=== PATIENT | male | born 1940 | race Caucasian/White ===

== ENCOUNTER 2016-05-21 20:51 | Emergency (ER) | payer MEDICARE ==
[~2016-05-21] VITALS: Ht 172.7 cm; Wt 102.2 kg
[~2016-05-21 20:51] MED LIST: ACET-2321 PO; ASPI-914 PO; ATOR80TA76 PO; BISA10SU8 RECTALLY; BUDE10.2 INH; CLOP75TA19 PO; DIPH50CA4 PO; DOCU-175 PO; DOXA2TAB2 PO; ESCI10TA47 PO; FERR-67 PO; FINA5TAB42 PO; LISI-621 PO; METO25TA6 PO; MICO15CR4 TOP; NITR0.4T SL; POLY17PO18 PO; PRIM50TA30 PO; PSYL0.525 PO; TAMS0.4C47 PO
--- OUTSIDE RECORDS SUMMARY | 2016-05-21 20:55 | XMS REPORT | Continuity of Care Document ---
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 Edema - *Chronic Constipation, unspecified - Acute Exacerbation ADV EFF MED/BIOL SUB NOS - *Acute Hypokalemia - *Controlled Former smoker - Inactive Peripheral vascular disease - Healing Pulmonary infiltrates - *Resolved Sleep apnea - *Controlled COPD (chronic obstructive pulmonary disease) - *Stable Diastolic dysfunction - Mild Hypertension, unspecified - *Poor control Benign prostatic hyperplasia - *Stable Peripheral vascular disease - Improved Hypertension, Unspecified - *Fair Control Edema - *Worse BENIGN LOCALIZED HYPERPLASIA OF PROSTATE WITH URINARY OBSTRUCTION - *Fair Control 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 Peripheral vascular disease, unspecified - Chronic Constipation, unspecified - Chronic Edema - Chronic Peripheral vascular disease, unspecified - *Chronic Constipation, unspecified - *Chronic Edema - *Chronic Withdrawal symptoms, drug or narcotic - *Acute 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 2012 - *Chronic 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 2012 - Improved Hypertension, Benign - *Chronic Hypertension, Benign - *Controlled Other and unspecified hyperlipidemia - *Chronic Hypertension, Unspecified - *Chronic COPD - *Chronic COPD - *Stable Other specified aftercare following surgery - *Chronic ADV EFF MED/BIOL SUB NOS - *Chronic 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 Peripheral vascular disease, unspecified - *Chronic Edema - *Chronic Other emphysema - *Chronic CKD (chronic kidney disease) stage 3, GFR 30-59 ml - *Worse Sleep disturbance - *Chronic Right hip pain - *Chronic Abdominal aortic aneurysm - Unstable Abnormal CT scan of lung - Uncertain Chronic obstructive airway disease - *Stable Peripheral vascular disease - Persistent Tobacco use disorder - Remission Chronic obstructive pulmonary disease (COPD) - *Stable Peripheral vascular disease - *Acute Sleep apnea - *Controlled Ex-cigarette smoker - *Stable Edema - Improved Stasis dermatitis - *Resolved Constipation, unspecified - *Chronic Other specified aftercare following surgery - *Chronic Edema - *Chronic Peripheral vascular disease, unspecified - *Chronic Insomnia - *Chronic Edema - *Acute Encounter for postoperative wound care - *Acute Peripheral vascular disease, unspecified - *Chronic Peripheral vascular disease, unspecified - Acute Exacerbation Constipation, unspecified - *Acute Embolic disease of toe - *Acute Hip pain, chronic - *Chronic Edema extremities - *Acute Hypertension, Unspecified - *Controlled Elevated blood pressure (not hypertension) May-01-2013 - *Acute Anxiety as acute reaction to exceptional stress - *Acute Tremor - *Acute Wound, open, toe - *Chronic COPD - *Fair Control Hypertension, Unspecified - *Controlled Edema - *Symptomatic Dependent edema - Persistent Stasis dermatitis - Persistent Eczema - *Acute Toe cyanosis - *Chronic Hypertension, Unspecified - *Controlled Peripheral vascular disease, unspecified - *Chronic Edema - *Chronic Hypertension, Benign - *Chronic Pain in joint involving pelvic region and thigh - *Chronic Sleep Apnea - *Chronic COPD - *Chronic Insomnia, Other - *Chronic Aftercare following surgery of the musculoskeletal - *Acute Gangrene - *Acute Hypertension, Unspecified - *Controlled Edema - *Resolved Peripheral vascular disease, unspecified - *Chronic Constipation, unspecified - *Chronic 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 Edema - *Chronic Chronic pain - *Chronic Cardiovasculare disease, unspecified - Chronic Hypertension, Unspecified - Chronic Other and unspecified hyperlipidemia - Chronic COPD - Chronic BPH - Chronic Obesity - Chronic Abnormality of gait - Chronic Sleep Apnea, Obstructive - Chronic Hypotension, Orthostatic - Chronic Right hip pain - Improved Actinic keratosis - Uncertain COPD - *Chronic Sleep Apnea - *Chronic Tobacco Abuse, History of - *Stable Peripheral vascular disease, unspecified - *Acute Obesity - *Chronic Hypertension, Unspecified - *Fair Control Influenza Vaccine - Sleep Apnea, Obstructive - Uncertain HYPERTROPHY (BENIGN) OF PROSTATE WITH URINARY OBSTRUCTION - * Fair Control Lung nodule seen on imaging study - New onset 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 Edema - *Chronic Constipation, unspecified - *Chronic Hypertension, Benign - *Chronic 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 - Chronic Edema - Chronic Constipation, unspecified - Chronic Hypertension, Benign - Chronic THYROTOX NOS NO CRISIS - PURE HYPERCHOLESTEROLEM - BENIGN HYPERTENSION - THROMBOS HEMORRHOIDS NOS - ALLERGIC RHINITIS NOS - 490 - BRONCHITIS NOS - EMPHYSEMA NEC - 496 - CHR AIRWAY OBSTRUCT NEC - CONSTIPATION NOS - BPH NOS W/O UR OBS/LUTS - BACKACHE NOS - PLANTAR FIBROMATOSIS - Family History Family Member Diagnosis Age At Onset Status Unknown Social History Social History Element Description Quantity Unknown Allergies, Adverse Reactions, Alerts Substance Reaction Severity Status BENAZEPRIL HCL muscle aches and fatigue Unknown LOSARTAN POTASSIUM myalgia, muscle fatigue Unknown Medications Medication Instructions Dosage Effective Dates (start - stop) Status triamcinolone acetonide 0.5 % topical ointment apply by topical route 3 times every day a thin layer to the affected area(s) 0 - Active metoprolol tartrate 25 mg tablet take 1 Tablet (25MG) by oral route 2 times every day 25 MG - Active Plavix 75 mg tablet take 1 tablet (75MG) by oral route every day 75 MG Nov - Active Aspirin Low Dose 81 mg tablet,delayed release take 1 tablet (81MG) by oral route every day 81 MG - Active Spiriva with HandiHaler 18 mcg & inhalation capsules inhale 1 capsule (18MCG) by inhalation route every day 18 MCG - Active Fiber-Caps 0.52 gram capsule take 2 Capsule by Oral route 2 times every day 0 - Active primidone 50 mg tablet take 1 Tablet (50MG) by oral route 2 times every day 50 MG - Active Stool Softener 240 mg capsule take 1 capsule (240MG) by oral route every day as needed 240 MG - Active Advair Diskus 250 mcg-50 mcg/dose powder for inhalation Inhale 1 puff by inhalation twice a day. - Active doxazosin 2 mg tablet take 1 tablet (2MG) by oral route every day 2 MG Nov - Active Immunizations Vaccine Date Status Comments Influenza virus (intradermal) completed Flu (split) (3 yrs or older) completed Pneumo (2 yrs or older)(PPV) completed Tdap (Boostrix r) completed pneumo (2 yrs or older) (PPV23) completed - Completed reason: source unspecified Td (adult) completed - Completed reason: source unspecified Results Test Name Date and Time Measure Units Reference Range Abnormal Flag Comments Panel Description: Metabolic Profile Glucose 09:56:00 80 mg/dL 70-99 BUN 09:56:00 13 mg/dL 8-26 Creatinine 09:56:00 1.29 mg/dL 0.72-1.25 H Calcium 09:56:00 9.7 mg/dL 8.9-10.5 Sodium 09:56:00 138 mEq/L 135-144 Potassium 09:56:00 4.2 mEq/L 3.5-5.2 Chloride 09:56:00 104 mEq/L 99-111 CO2 09:56:00 30 mEq/L 23-31 Anion Gap 09:56:00 4 3-20 Testing performed at [facility] Reference Lab [address] [facility] [address] Rubber Tubing Splicer Daniel Daly MD Panel Description: [facility] eGFR 09:56:00 55 mL/min >60 A Multiply eGFR results by 1.21 for race.Testing performed at [facility] Reference Lab [address] [facility] [address] Rubber Tubing Splicer Daniel Daly MD Panel Description: Magnesium Magnesium 09:56:00 2.2 mg/dL 1.6-2.6 Testing performed at [facility] Reference Lab [address] [facility] [address] Rubber Tubing Splicer Daniel Daly MD Vital Signs Date / Time: Height Weight Pulse Rate Blood Pressure Temperature /10:04:00 68.00 in 227.00 lbs 72 /min 152/78 mm[Hg] Procedures Procedure Date Unknown Encounters Encounter Location Date Patient Visit [facility] Patient Visit [facility] Patient Visit [facility] Patient Visit [facility] Pulne Patient Visit [facility] Pulmo Patient Visit [facility] Patient Visit [facility] Patient [facility] Patient Visit [facility] Patient [facility] Patient [facility] Patient [facility] Patient [facility] Patient Visit [facility] Patient Visit [facility] Patient Visit [facility] Patient Visit [facility] Patient Visit [facility] Patient [facility] Patient [facility] Patient [facility] Patient Visit [facility] Patient Visit [facility] Patient Visit [facility] Patient Visit [facility] Patient Visit [facility] Patient Visit [facility] Patient Visit [facility] Patient Visit [facility] Patient Visit [facility] Patient [facility] Patient [facility] Patient Visit [facility] Patient Visit [facility] Patient Visit [facility] Patient Visit [facility] Urology Patient Visit [facility] Patient Visit Conversion Patient Visit [facility] Patient Visit [facility] Advance Directives Directive Effective Date Unknown
--- OUTSIDE RECORDS SUMMARY | 2016-05-21 20:55 | XMS REPORT | Referral Summary ---
Author Organization Unknown Address Unknown Phone Unavailable Care Team Providers Care Residential Aide Name Role Phone Daryl Lazcano Primary Care Physician [phone] Encounter VC Date(s): 04/12/14 - 04/12/14 [facility], [place], Family Medicine [address] [place] [address] [place] [id number] Discharge Diagnosis: Benign essential hypertension Discharge Diagnosis: Peripheral vascular disease Discharge Disposition: Home or Self Care Attending Physician: Daryl Lazcano DO Admitting Physician: Daryl Lazcano DO Vital Signs Most recent to 1 oldest [Reference Range]: Peripheral Pulse 70 bpm Rate [60-100 bpm] (04/12/14 11:01 AM) Blood Pressure 132/72 mmHg [90-140/60-90 mmHg] (04/12/14 11:01 AM) Problem List Condition Effective Dates Status Health Status Informant Abnormal gait Active (finding)(Confirmed) Acute kidney injury, 01/29/12 Active hypokalemia(Confirme d) Allergic Active Rhinitis/Hay Fever(Confirmed) Arteriosclerotic Active cardiovascular disease(Confirmed) Arthralgia of the Active pelvic region and thigh (finding)(Confirmed) Arthritis(Confirmed) Resolved Asthma(Confirmed) Resolved intermittant mild Active back pains(Confirmed) Benign essential Active hypertension (disorder)(Confirmed ) Benign Prostatic Active Hypertrophy(Confirme d) Bronchitis(Confirmed Active ) COPD(Confirmed)1 Active claudication(Confirm 2011 Active ed) Constipation Active (disorder)(Confirmed ) 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(Confirmed)2 Disorder of Active cardiovascular system (disorder)(Confirmed ) Edema Active (finding)(Confirmed) Hemorrhoids(Confirme Active d) Hip pain, Active chronic(Confirmed) High Active cholesterol(Confirme d) Hyperlipidemia, Active NOS(Confirmed) Hypothyroidism(Confi Active rmed) plantar fascitis, Active mild chronic(Confirmed) left sided 01/2008 Active TMJ(Confirmed) Embolic disease of Active toe(Confirmed) Basal cell skin ca L 03/18/11 Active shoulder(Confirmed)3 Obesity Active (disorder)(Confirmed ) Obstructive sleep Active apnea syndrome (disorder)(Confirmed ) Orthostatic Active hypotension (disorder)(Confirmed ) Overweight(Confirmed Active )4 Peripheral vascular Active disease (disorder)(Confirmed ) Encounter for Active postoperative wound care(Confirmed) Prostatism(Confirmed Active )5 Emphysema Active NEC(Confirmed) Sleep apnea Active (disorder)(Confirmed ) Gait Active instability(Confirme d) 1moderate COPD, mild emphysema (PFT 03/2007). See Conversion Document 2[place] IN 6 MO. 07/2011 3full excision 4See Conversion Document 5mild Allergies, Adverse Reactions, Alerts No Known Medication Allergies Medications Aspirin Low Dose 81 mg oral delayed release tablet 1 tabs, Oral, Daily, 0 Refill(s) Start Date: 08/08/13 Status: Ordered doxazosin 2 mg oral tablet 1 tabs, Oral, Daily, # 90 tabs, 4 Refill(s), Pharmacy: [facility], 1 tabs Oral Daily Start Date: 11/02/13 Status: Ordered Fiber Choice See Instructions, 2 caps BID, 0 Refill(s) Special Instructions: 2 caps BID Start Date: 10/31/13 Status: Ordered lisinopril 20 mg oral tablet 1 tabs, Oral, Daily, # 90 tabs, 3 Refill(s), Pharmacy: [facility] Start Date: 04/12/14 Status: Ordered metoprolol tartrate 25 mg oral tablet 1 tabs, Oral, BID, # 60 tabs, 0 Refill(s), Pharmacy: [facility], 1 tabs Oral BID Start Date: 11/17/13 Status: Ordered Plavix 75 mg oral tablet 1 tabs, Oral, Daily, # 30 tabs, 0 Refill(s) Start Date: 08/08/13 Status: Ordered primidone 50 mg oral tablet 1 tabs, Oral, BID, # 120 tabs, 0 Refill(s) Start Date: 08/08/13 Status: Ordered Surfak Stool Softener 240 mg oral capsule 1 caps, Oral, Daily, 0 Refill(s) Start Date: 10/31/13 Status: Ordered Symbicort 160 mcg-4.5 mcg/inh inhalation aerosol 2 puffs, Inhalation, Daily, 0 Refill(s) Start Date: 10/31/13 Status: Ordered Results No data available for this section Immunizations Vaccine Date Refusal Reason influenza virus vaccine, live 12/08/12 influenza virus vaccine, live 10/31/12 pneumococcal 13-valent conjugate vaccine1 12/07/13 pneumococcal 23-polyvalent vaccine 12/08/12 tetanus-diphth toxoids (Td) adult/adol 05/02/03 zoster vaccine live2 12/14/13 1Result Comment: [12/08/2013] see scanned document 2Result Comment: [12/14/2013] see scanned document Procedures Procedure Date Related Diagnosis Body Site Angiogram and stent placement/Dr Barbosa-1 Colonoscopies embolectomy-rt lower extremity-Dr Barbosa2 Hospitalization PEREODONTAL GUMS3 STENT TO THE LEFT COMMAN ILIAC ARTERY4 1claudication 2011 2PVD- p angiogram got embolis- 11-30-2011. 3See Conversion Document 4Peripheral vascular disease 11/16/2011. Social History Social History Type Response Smoking Status Former smoker; Type: Cigarettes Assessment and Plan Extracted from: Title: Office Visit Note Author: Daryl Lazcano DO Date: 04/12/14 Assessment/Plan 1.Benign essential hypertension 1. Blood pressures well controlled at this time. 2. C ontinue with lisinopril and metoprolol as previous. 3. Follow-up in 3 months for blood pressure management. Ordered: Office Visit Level 3 Est 18738 2.Peripheral vascular disease Recommended following Dr. Barbosa's recommendation regarding the Plavix. Ordered: Office Visit Level 3 Est 72736 Orders: lisinopril, 1 tabs, Oral, Daily, # 90 tabs, 3 Refill(s), [id number] Future Scheduled TestsReferral* Return to Clinic 12/07/13 12:36 PM Referrals to Other Providers Referred by: Bruno Mello MD
--- OUTSIDE RECORDS SUMMARY | 2016-05-21 20:55 | XMS REPORT | Referral Summary ---
Author Author [facility] Organization [facility] Address Unknown Phone Unavailable Care Team Providers Care Ceramic Sprayer Name Role Phone Daryl Lazcano Primary Care Physician [phone] Encounter VC Date(s): 08/13/14 - 08/13/14 [facility] [place] [address] [place] [id number] Discharge Diagnosis: Libido, decreased Discharge Diagnosis: Benign essential hypertension Discharge Diagnosis: Lower back pain Discharge Disposition: 01-Home or Self Care Attending Physician: Daryl Lazcano DO Admitting Physician: Daryl Lazcano DO Vital Signs Most recent to 1 oldest [Reference Range]: Temperature Tympanic 36.3 degC [36.6-38.1 degC] *LOW* (08/13/14 1:44 PM) Peripheral Pulse 60 bpm Rate [60-100 bpm] (08/13/14 1:44 PM) Blood Pressure 132/68 mmHg [90-140/60-90 mmHg] (08/13/14 1:44 PM) Problem List Condition Effective Dates Status Health Status Informant Abnormal gait Active (finding)(Confirmed) Acute kidney injury, 01/29/12 Active hypokalemia(Confirme d) Allergic Active Rhinitis/Hay Fever(Confirmed) Arteriosclerotic Active cardiovascular disease(Confirmed) Arthralgia of the Active pelvic region and thigh (finding)(Confirmed) Arthritis(Confirmed) Resolved Asthma(Confirmed) Resolved intermittant mild Active back pains(Confirmed) Benign essential Active hypertension (disorder)(Confirmed ) Benign Prostatic Active Hypertrophy(Confirme d) Bronchitis(Confirmed Active ) COPD(Confirmed)1 Active claudication(Confirm 2012 Active ed) Constipation Active (disorder)(Confirmed ) MILDLY [...] 03/18/11 Active shoulder(Confirmed)3 Obesity Active (disorder)(Confirmed ) Obesity(Confirmed) Active patient Obstructive sleep Active apnea syndrome (disorder)(Confirmed ) [...] Status: Ordered doxazosin 2 mg oral tablet See Instructions, TAKE ONE TABLET BY MOUTH ONCE DAILY, # 90 tabs, 3 Refill(s), eRx: [id number], TAKE ONE TABLET BY MOUTH ONCE DAILY Start Date: 01/25/15 Status: Ordered Fiber Choice See Instructions, 2 caps BID, 0 Refill(s) Start Date: 10/31/13 Status: Ordered lisinopril 40 mg oral tablet 40 mg 1 tabs, Oral, Daily, # 30 tabs, 6 Refill(s), Pharmacy: [facility] Start Date: 08/30/14 Status: Ordered Metoprolol Tartrate 25 mg oral tablet See Instructions, TAKE ONE TABLET BY MOUTH TWICE DAILY, # 60 tabs, 3 Refill(s), eRx: [facility], TAKE ONE TABLET BY MOUTH TWICE DAILY Start Date: 10/16/14 Status: Ordered Metoprolol Tartrate 25 mg oral tablet See Instructions, TAKE ONE TABLET BY MOUTH TWICE DAILY, # 60 tabs, 1 Refill(s), eRx: [facility], TAKE ONE TABLET BY MOUTH TWICE DAILY Start Date: 02/11/15 Status: Ordered Plavix 75 mg oral tablet 1 tabs, Oral, Daily, # 30 tabs, 0 Refill(s) Start Date: 08/08/13 Status: Ordered primidone 50 mg oral tablet 1 tabs, Oral, BID, # 120 tabs, 0 Refill(s) Start Date: 08/08/13 Status: Ordered Surfak Stool Softener 240 mg oral capsule 240 mg 1 caps, Oral, Daily, as needed for constipation, 0 Refill(s) Start Date: 10/31/13 Status: Ordered Symbicort 160 mcg-4.5 mcg/inh inhalation aerosol 2 puffs, Inhalation, Daily, # 1 Each, 6 Refill(s), Pharmacy: [id number] Start Date: 09/26/14 Status: Ordered Results No data available for [...] Visit Note Author: Daryl Lazcano DO Date: 08/13/14 Assessment/Plan Benign essential hypertension 1. I agree with discontinuing the chlorthalidone given that his blood pressures well controlled at this time. 2. Continue modifying diet and avoiding salt as much as possible. 3. Increase exercise as tolerated. 4. Avoid NSAIDs. Ordered: Office Visit Level 3 Est 32534 Libido, decreased 1. Agree with discontinuation of chlorthalidone. 2. We will address this at next office visit, if it continues to be concerned then we will determine if he needs further testing. Ordered: Office Visit Level 3 Est 86412 Lower back pain 1.Discontinue the use of NSAIDs. 2. He may use Tylenol instead. 3. Follow-up if worsening presentation. Future Scheduled TestsReferral* Return to Clinic 07/16/14 2:08 PM Referrals to Other Providers Referred by: Bruno Mello MD
--- OUTSIDE RECORDS SUMMARY | 2016-05-21 20:56 | XMS REPORT | Referral Summary ---
Author Author [facility] Organization [facility] Address Unknown Phone Unavailable Care Team Providers Care Merchandising Representative Name Role Phone Reedloyda Daryl Primary Care Physician [phone] Encounter VC Date(s): 05/30/15 - 06/12/15 [facility] [address] [place] [address] [phone] Discharge Diagnosis: Weakness on left side of face Discharge Diagnosis: Hemianopia, homonymous, left Discharge Diagnosis: CAD (coronary artery disease) of artery bypass graft Discharge Diagnosis: Encephalopathy Discharge Diagnosis: Acute arterial ischemic stroke, multifocal, mult vascular territories Discharge Disposition: 62-Inpatient Rehab Facility Attending Physician: Kenny Fitzpatrick MD Admitting Physician: Kenny Fitzpatrick MD Vital Signs Most recent to 1 oldest [Reference Range]: Temperature Oral 36.3 degC [35.8-37.3 degC] (06/12/15 9:00 AM) Temperature Temporal 36.0 degC Artery [36.3-37.8 *LOW* degC] (06/07/15 8:00 AM) Apical Heart Rate 118 bpm [60-100 bpm] *HI* (06/04/15 10:20 AM) Peripheral Pulse 97 bpm Rate [60-100 bpm] (06/12/15 9:41 AM) Peripheral Pulse 92 bpm Rate with Activity (06/10/15 10:31 AM) Heart Rate Monitored 87 bpm [60-100 bpm] (06/11/15 7:54 AM) Respiratory Rate 20 br/min [14-20 br/min] (06/12/15 9:00 AM) Blood Pressure 119/71 mmHg [90-140/60-90 mmHg] (06/12/15 9:41 AM) Systolic Blood 131 mmHg Pressure with (06/10/15 10:31 AM) Activity Diastolic Blood 85 mmHg Pressure with (06/10/15 10:31 AM) Activity Mean Arterial 105 mmHg Pressure, Cuff (06/07/15 9:00 AM) Blood Pressure 123/54 mmHg Invasive (06/04/15 2:00 PM) [90-140/60-90 mmHg] Mean Arterial 70 mmHg Pressure, Invasive (06/04/15 2:00 PM) Pulse Rate [60-100 88 bpm bpm] (06/12/15 7:46 AM) SpO2 93 % (06/12/15 9:00 AM) Remote Telemetry Ongoing (06/12/15 9:00 AM) Problem List Condition Effective Dates Status Health Status Informant Abnormal gait Active (finding)(Confirmed) Acute Active pain(Confirmed) Acute kidney injury, 01/29/12 Active hypokalemia(Confirme d) Allergic Active Rhinitis/Hay Fever(Confirmed) Anxiety(Confirmed)1 Active Arteriosclerotic Active cardiovascular disease(Confirmed) Arthralgia of the Active pelvic region and thigh (finding)(Confirmed) Arthritis(Confirmed) Resolved Asthma(Confirmed) Resolved At risk for activity Active intolerance(Confirme d)2 At risk of pressure Active sore(Confirmed) intermittant mild Active back pains(Confirmed) Benign essential Active hypertension (disorder)(Confirmed ) Benign Prostatic Active Hypertrophy(Confirme d) Bronchitis(Confirmed Active ) Cardiac Active disorder(Confirmed)3 COPD(Confirmed)4 Active claudication(Confirm 2011 Active ed) 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(Confirmed)5 Disorder of Active cardiovascular system (disorder)(Confirmed ) Edema Active (finding)(Confirmed) Hemorrhoids(Confirme Active d) Hip pain, Active chronic(Confirmed) High Active cholesterol(Confirme d) Hyperlipidemia, Active NOS(Confirmed) Hypothyroidism(Confi Active rmed) plantar fascitis, Active mild chronic(Confirmed) left sided 01/2008 Active TMJ(Confirmed) Embolic disease of Active toe(Confirmed) Basal cell skin ca L 03/18/11 Active shoulder(Confirmed)6 Obesity Active (disorder)(Confirmed ) Obesity(Confirmed) Active patient Obstructive sleep Active apnea syndrome (disorder)(Confirmed ) Orthostatic Active hypotension (disorder)(Confirmed ) Overweight(Confirmed Active )7 Peripheral vascular Active disease (disorder)(Confirmed ) Encounter for Active postoperative wound care(Confirmed) Prostatism(Confirmed Active )8 Emphysema Active NEC(Confirmed) Sleep apnea Active (disorder)(Confirmed ) Constipation Active (disorder)(Confirmed ) Gait Active instability(Confirme d) 1Problem added automatically by system based on initiation of Anxiety Plan of Care 2Problem added automatically by system based on initiation of At Risk for Activity Intolerance Plan of Care 3Problem added automatically by system based on initiation of Cardiac Output/ Ineffective Cardiac Perfusion Plan of Care 4moderate COPD, mild emphysema (PFT 03/2007). See Conversion Document 5[place] 6 [place]. 07/2011 6full excision 7See Conversion Document 8mild Allergies, Adverse Reactions, Alerts No Known Medication Allergies Medications Aspirin Low Dose 81 mg oral delayed release tablet 81 mg 1 tabs, Oral, Daily, 0 Refill(s) Start Date: 08/08/13 Status: Ordered atorvastatin 80 mg oral tablet 80 mg 1 tabs, Oral, Daily, # 30 tabs, 6 Refill(s), other reason (Rx) Start Date: 06/11/15 Status: Ordered diphenhydrAMINE 50 mg, Oral, Bedtime (once a day), TAKE FOR SLEEP, 0 Refill(s) Start Date: 05/30/15 Status: Ordered doxazosin 2 mg, Oral, Daily, 0 Refill(s) Start Date: 05/30/15 Status: Ordered Dulcolax Stool Softener 200 mg, Oral, Daily, 0 Refill(s) Start Date: 05/30/15 Status: Ordered ferrous sulfate 325 mg (65 mg elemental iron) oral delayed release tablet 650 mg 2 tabs, Oral, Daily, 0 Refill(s) Start Date: 06/11/15 Status: Ordered finasteride 5 mg oral tablet 5 mg 1 tabs, Oral, Daily, # 30 tabs, 0 Refill(s) Start Date: 04/24/15 Status: Ordered lisinopril 20 mg oral tablet 20 mg 1 tabs, Oral, Daily, # 30 tabs, 0 Refill(s), other reason (Rx) Start Date: 06/11/15 Status: Ordered metoprolol tartrate 25 mg oral tablet 25 mg 1 tabs, Oral, BID, # 60 tabs, 6 Refill(s), other reason (Rx) Start Date: 06/11/15 Status: Ordered Nitrostat 0.4 mg sublingual tablet 0.4 mg 1 tabs, SubLingual, q5min, Angina/Chest Pain, # 25 Each, 6 Refill(s), other reason (Rx) Start Date: 06/11/15 Status: Ordered Perham 5 mg-325 mg oral tablet See Instructions, Pain Moderate (4-6), 1 to 2 tabs Oral q4hr, # 50 tabs, 0 Refill(s), other reason (Rx) Start Date: 06/11/15 Stop Date: 06/22/15 Status: Ordered OTC Psyllium Fiber OTC Psyllium Fiber, 2 caps oral daily, 0 Refill(s) Start Date: 05/30/15 Status: Ordered Plavix 75 mg oral tablet 75 mg 1 tabs, Oral, Daily, # 30 tabs, 0 Refill(s) Start Date: 08/08/13 Status: Ordered primidone 50 mg oral tablet 50 mg 1 tabs, Oral, BID, # 120 tabs, 0 Refill(s) Start Date: 08/08/13 Status: Ordered Symbicort 160 mcg-4.5 mcg/inh inhalation aerosol 2 puffs, Inhalation, Daily, # 1 Each, 6 Refill(s), Pharmacy: [id number] Start Date: 09/26/14 Status: Ordered Results Blood Gases Most recent to 1 oldest [Reference Range]: pH [7.35-7.45] 7.36 (06/04/15 5:30 AM) PCO2 Arterial POC 41 mmHg [35-45 mmHg] (06/03/15 12:28 PM) pCO2 Art [35-45 37 mmHg mmHg] (06/04/15 5:30 AM) CO2 Totl Art [23-27 21 mEq/L mEq/L] *LOW* (06/03/15 12:28 PM) Bicarbonate [22-26 20 mEq/L mEq/L] *LOW* (06/04/15 5:30 AM) Bicarbonate Arterial 20 mEq/L POC [22-26 mEq/L] *LOW* (06/03/15 12:28 PM) Base Excess Arterial -6 POC [0-2] *LOW* (06/03/15 12:28 PM) Base Excess Art -5 [0-2] *LOW* (06/04/15 5:30 AM) O2 Sat Art 95.7 % [90.0-97.0 %] (06/04/15 5:30 AM) pO2 Art [80-100 85 mmHg mmHg] (06/04/15 5:30 AM) O2 Saturation 100.0 % Arterial POC *HI* [90.0-97.0 %] (06/03/15 12:28 PM) pH Arterial POC 7.30 [7.35-7.45] *LOW* (06/03/15 12:28 PM) PO2 Arterial POC 296 mmHg [80-100 mmHg] *HI* (06/03/15 12:28 PM) LPM Art 6.0 L/min (06/04/15 5:30 AM) O2 Panel Nasal Cannula (06/04/15 5:30 AM) Vent Mode AC (06/03/15 1:26 PM) Set Vt 500 mL (06/03/15 1:26 PM) Set Rate 12 br/min (06/03/15: PM) FiO2 Art [0-100] 40 (06/03/15 10:30 PM) PEEP 5.0 (06/03/15 10:30 PM) Inspiratory Time Art 0.90 seconds (06/03/15 1:26 PM) Tubing Compensation 100 % (06/03/15 10:30 PM) Total Rate 8 br/min (06/03/15 6:49 PM) Spon Vt 800 mL (06/03/15 6:49 PM) Spec Site A-Line (06/04/15 5:30 AM) Hematology Most recent to 1 oldest [Reference Range]: WBC [4.8-10.8 7.0 10*3/uL 10*3/uL] (06/08/15 5:28 AM) RBC [4.60-6.20] 3.26 *LOW* (06/08/15 5:28 AM) Hgb [14.0-18.0 9.3 gm/dL gm/dL] *LOW* (06/08/15 5:28 AM) Hct [42.0-52.0 %] 29.5 % *LOW* (06/08/15 5:28 AM) MCV [82.0-99.0 fL] 90.5 fL (06/08/15 5:28 AM) MCH [27.0-32.0 pg] 28.5 pg (06/08/15 5:28 AM) MCHC [32.0-36.0 31.5 gm/dL gm/dL] *LOW* (06/08/15 5:28 AM) RDW [11.5-14.5 %] 14.3 % (06/08/15 5:28 AM) Platelet [150-400 187 10*3/uL 10*3/uL] (06/08/15 5:28 AM) MPV [9.4-12.3 fL] 9.9 fL (06/08/15 5:28 AM) Immature 0.3 % Granulocytes (06/04/15 3:57 AM) [0.0-1.0 %] Neutrophils [51-75 86 % %] *HI* (06/04/15 3:57 AM) Lymphocytes [20-46 6 % %] *LOW* (06/04/15 3:57 AM) Monocytes [4-11 %] 8 % (06/04/15 3:57 AM) Eosinophils [0-4 %] 0 % (06/04/15 3:57 AM) Basophils [0-2 %] 0 % (06/04/15 3:57 AM) Neutro Absolute 10.09 10*3 [1.90-7.00 10*3] *HI* (06/04/15 3:57 AM) Lymph Absolute 0.66 10*3 [0.80-3.30 10*3] *LOW* (06/04/15 3:57 AM) Archer Absolute 0.98 10*3 [0.30-1.00 10*3] (06/04/15 3:57 AM) Eos Absolute 0.00 10*3 [0.00-0.50 10*3] (06/04/15 3:57 AM) Baso Absolute 0.01 10*3 [0.00-0.20 10*3] (06/04/15 3:57 AM) Nucleated RBC 0.0 /100 WBC Automated [0 /100 (06/04/15 3:57 AM) WBC] Coagulation Most recent to 1 oldest [Reference Range]: INR [0.9-1.2] 2.0 *HI* (06/03/15 11:26 AM) PTT [25.0-35.0 57.0 seconds seconds] *HI* (06/03/15 11:26 AM) Fibrinogen Lvl 204 mg/dL [187-520 mg/dL] (06/03/15 11:26 AM) P2Y12 Reaction Units 168.0 1 (06/03/15 3:31 AM) Thrombelastograph See Scan (06/03/15 11:26 AM) 1Result Comment: Pre-Drug PRU reference is 194-418. PRU levels lower than 194 are associated with expected antiplatelet effect. The performance characteristics of the P2Y12 inhibition test has been established for Clopidogrel, Prasugrel, and Ticagrelor. Expected values may be used for these drugs. Chemistry Most recent to 1 oldest [Reference Range]: Sodium Lvl [136-144 136 mEq/L mEq/L] (06/09/15 6:55 AM) Potassium Lvl 4.0 mEq/L [3.6-5.1 mEq/L] (06/09/15 6:55 AM) Chloride [99-109 104 mEq/L mEq/L] (06/09/15 6:55 AM) CO2 [22-32 mEq/L] 29 mEq/L (06/09/15 6:55 AM) AGAP [3-20] 3 (06/09/15 6:55 AM) BUN [4-20 mg/dL] 17 mg/dL (06/09/15 6:55 AM) Glucose Lvl [70-100 105 mg/dL mg/dL] *HI* (06/09/15 6:55 AM) Creatinine Lvl 1.04 mg/dL [0.64-1.27 mg/dL] (06/09/15 6:55 AM) eGFR [>60] >60 1 (06/09/15 6:55 AM) Calcium Lvl 8.4 mg/dL [8.6-10.0 mg/dL] *LOW* (06/09/15 6:55 AM) Albumin Lvl [3.5-4.8 3.3 gm/dL gm/dL] *LOW* (05/31/15 4:35 AM) Total Protein 7.3 gm/dL [6.1-7.9 gm/dL] (05/31/15 4:35 AM) Globulin [1.9-4.3 4.0 gm/dL gm/dL] (05/31/15 4:35 AM) ALT [17-63 U/L] 23 U/L (05/31/15 4:35 AM) AST [15-41 U/L] 24 U/L (05/31/15 4:35 AM) Alk Phos [26-104 84 U/L U/L] (05/31/15 4:35 AM) Bili Total [0.2-1.2 0.8 mg/dL 2 mg/dL] (05/31/15 4:35 AM) Magnesium Lvl 1.9 mg/dL [1.8-2.5 mg/dL] (06/05/15 3:42 AM) Calcium Ionized 1.23 mmol/L [1.19-1.41 mmol/L] (06/05/15 3:42 AM) Prealbumin [18-38 16 mg/dL mg/dL] *LOW* (06/03/15 3:31 AM) Sodium Arterial NPT 141 mEq/L [136-144 mEq/L] (06/03/15 12:28 PM) Potassium Arterial 4.2 mEq/L 3 NPT [3.6-5.1 mEq/L] (06/03/15 12:28 PM) Calcium Ionized 1.17 mmol/L Arterial NPT *LOW* [1.19-1.41 mmol/L] (06/03/15 12:28 PM) HCT Arterial NPT 34.0 % (06/03/15 12:28 PM) HGB Arterial NPT 11.6 gm/dL (06/03/15 12:28 PM) Arterial Glucose NPT 109 mg/dL [70-100 mg/dL] *HI* (06/03/15 12:28 PM) Activated Clotting 110 seconds Time NPT [100-146 (06/03/15 11:29 AM) seconds] Blood Glucose, 123 mg/dL Capillary [70-100 *HI* mg/dL] (06/04/15 6:44 AM) Chol [0-200 mg/dL] 215 mg/dL *HI* (05/31/15 4:35 AM) Trig [0-150 mg/dL] 97 mg/dL (05/31/15 4:35 AM) HDL [>40 mg/dL] 43 mg/dL (05/31/15 4:35 AM) LDL [0-100 mg/dL] 153 mg/dL *HI* (05/31/15 4:35 AM) VLDL Cholesterol 19 mg/dL [0-30 mg/dL] (05/31/15 4:35 AM) Cardiac Risk 5.0 [0.0-5.7] (05/31/15 4:35 AM) TSH with Reflex Free 2.85 T4 [0.35-5.50] (06/06/15 4:02 AM) Hgb A1c [4.1-5.6 %] 5.1 % (06/03/15 3:31 AM) eAvg Glucose 99.7 mg/dL (06/03/15 3:31 AM) 1Result Comment: Multiply eGFR results by 1.21 for race. 2Result Comment: Naproxen, specifically the metabolite O-desmethylnaproxen, may cause spurious elevation in Total Bilirubin levels. 3Result Comment: This test was performed on a whole blood specimen. The presence or absence of hemolysis cannot be assessed. Hemolysis can falsely elevate potassium levels. Normals are for venous specimens only. Urinalysis Most recent to 1 oldest [Reference Range]: UA Color Yellow (06/03/15 3:25 AM) UA Appear Clear (06/03/15 3:25 AM) UA pH [5.0-8.0] 6.0 (06/03/15 3:25 AM) UA Leuk Est Negative [Negative] (06/03/15 3:25 AM) UA Nitrite Negative [Negative] (06/03/15 3:25 AM) UA Protein Negative [Negative] (06/03/15 3:25 AM) UA Glucose Negative [Negative] (06/03/15 3:25 AM) UA Ketones Negative [Negative] (06/03/15 3:25 AM) UA Urobilinogen Negative [<1.0] (06/03/15 3:25 AM) UA Bili [Negative] Negative (06/03/15 3:25 AM) UA Blood [Negative] Negative (06/03/15 3:25 AM) UA Spec Grav 1.020 [1.003-1.030] (06/03/15 3:25 AM) Type Clean Catch (06/03/15 3:25 AM) Blood Bank Results Most recent to 1 oldest [Reference Range]: ABO/Rh O POS (06/02/15 11:07 AM) Antibody Screen Tube NEG (06/02/15 11:07 AM) Microbiology Reports TEST: MRSA Screen Culture STATUS: Auth (Verified) BODY SITE: SOURCE: Nares COLLECTED DATE/TIME: 06/02/15 4:01 PM MRSA Screen Culture No Methicillin Resistant Staphylococcus aureus isolated. Immunizations Vaccine Date Refusal Reason influenza virus vaccine, live 12/08/12 influenza virus vaccine, live 10/31/12 pneumococcal 13-valent conjugate vaccine1 12/07/13 pneumococcal 23-polyvalent vaccine 12/08/12 tetanus-diphth toxoids (Td) adult/adol 05/02/03 zoster vaccine live2 12/14/13 1Result Comment: [12/08/2013] see scanned document 2Result Comment: [12/14/2013] see scanned document Procedures Procedure Date Related Diagnosis Body Site Bypass Graft Coronary Artery1 06/03/15 Angiogram and stent placement/Dr Barbosa-2 Colonoscopies3 embolectomy-rt lower extremity-Dr Barbosa4 Hospitalization PEREODONTAL GUMS5 STENT TO THE LEFT COMMAN ILIAC ARTERY6 1auto-populated from documented surgical case 2claudication 2011 4PVD- p angiogram got embolis- 11-30-2011. 5See Conversion Document 6Peripheral vascular disease 11/16/2011. Social History Social History Type Response Smoking Status Former smoker; Type: Cigarettes Assessment and Plan Extracted from: Title: Progress/SOAP Note Author: Brigitte Samuels APRN Date: 06/01/15 Assessment/Plan 1. CAD Consult Dr. Karin Schmidt for CABG, heart cath disc on chart, notified 1100 Pt needs fullanti-coagulation, continue Aspirin 81mg, ICUbed for monitoring due to diffuse CAD 2. s/pNSTEMI On EMILY, beta rosy, aspirin and statin therapy 3. HTN controlled Continue home meds lisinopril 40mg daily, metoprolol tartrate 25mg bid started this am 4. PAD antiplatelet therapy, restart plavix after surgery Statin therapy 5. hypercholesterolemia Started on 40mg of atorvastatin 6. COPD/sleep apnea continue home med symbicort CPAP nocturnal RT consult 7. BPH continue home meds finasteride, doxazosin 8. left carotid bruit see results above Future Scheduled TestsReferral* Return to Clinic 07/16/14 2:08 PM Referrals to Other Providers Referred by: Bruno Mello MD
--- OUTSIDE RECORDS SUMMARY | 2016-05-21 20:56 | XMS REPORT | Continuity of Care Document ---
Author Author [facility] Organization [facility] Address Unknown Phone Unavailable Support Name Relationship Address Phone JACKIE GOLDMAN MD Caregiver [address] [place] [address] Unavailable JACKIE GOLDMAN MD Caregiver [address] [place] [address] Unavailable SHRUTHI MACKAY DO Caregiver [address] [place] [address] Unavailable ALCON TRAN Next Of Kin [address] [place] [address] Insurance Providers Guarantor MarcDago Address [address] [place] [id number] Email [email or web address] Payer [facility] Policy Number [id number] Subscriber's Name Dago Tran Relationship 18 Self Group Number [id number] Effective Date 07 Advance Directives Directive Response Recorded Date/Time Ordered Resuscitation Status Full Code 06/12/15 2:49pm Resuscitation Documents on File Yes 06/12/15 3:32pm DPOA for Healthcare Only Yes 06/13/15 4:51pm Chief Complaint and Reason for Visit Chief Complaint CVA Reason for Visit AAA (abdominal aortic aneurysm) H/O aorto-femoral bypass Adjustment disorder Anemia Arterial ischemic stroke, multifocal, multiple vascular territories, acute Atherosclerotic peripheral vascular disease of extremity BPH (benign prostatic hyperplasia) COPD (chronic obstructive pulmonary disease) Carotid stenosis Cellulitis and abscess of leg Chest pain Constipation Coronary artery disease Dysphagia due to recent stroke Elevated troponin I level Hemianopsia Hypertension Incontinence of bowel Incontinence of urine Left hemiparesis Obstructive sleep apnea Problems Active Problems Medical Problem Onset Date Status AAA (abdominal aortic aneurysm) Unknown Acute Adjustment disorder Unknown Acute Adjustment disorder with depressed mood Unknown Acute Anemia Unknown Acute Arterial ischemic stroke, multifocal, multiple vascular territories, acute Unknown Acute Atherosclerotic peripheral vascular disease of extremity Unknown Chronic BPH (benign prostatic hyperplasia) Unknown Chronic COPD (chronic obstructive pulmonary disease) Unknown Chronic Carotid stenosis Unknown Acute Cellulitis and abscess of leg Unknown Resolved Chest pain Unknown Resolved Constipation Unknown Resolved Coronary artery disease Unknown Chronic Dysphagia due to recent stroke Unknown Resolved Elevated troponin I level Unknown Acute Hemianopsia Unknown Resolved Hypertension Unknown Chronic Incontinence of bowel Unknown Resolved Incontinence of urine Unknown Resolved Left hemiparesis Unknown Acute Obstructive sleep apnea Unknown Chronic Surgical Problem Onset Date Status H/O aorto-femoral bypass Unknown Chronic Medications Current Home Medications Medication Dose Units Route Directions Days Qty Instructions Start Date Acetaminophen (Tylenol) 325 Mg Tablet 325-650 Mg Oral Every 5 Hours as needed for Discomfort 30 Tablet 06/28/15 Aspirin (Low Dose Aspirin Ec) 81 Mg Tablet.dr 81 Mg Oral Daily Atorvastatin Calcium 80 Mg Tablet 1 Tab Oral Bedtime 06/12/15 Bisacodyl 10 Mg Supp.rect 10 Mg Rectally Daily as needed for Constipation 15 06/28/15 Budesonide/Formoterol Fumarate (Symbicort 160-4.5 Mcg Inhaler) 10.2 Gm Hfa.aer.ad 1 Puff Inhalation Daily 05/29/15 Clopidogrel Bisulfate (Plavix) 75 Mg Tablet 75 Mg Oral Daily 07/20 Diphenhydramine Hcl 50 Mg Capsule 50 Mg Oral Bedtime as needed for Insomnia 30 Days 30 Capsule 06/28/15 Docusate Sodium 100 Mg Capsule 2 Cap Oral Daily 30 Capsule 06/12/15 Doxazosin Mesylate 2 Mg Tablet 2 Mg Oral Daily 05/29/15 Escitalopram Oxalate 10 Mg Tablet 10 Mg Oral Daily 30 Days 30 Tablet 06/28/15 Ferrous Sulfate (Iron Supplement) 325 Mg Tablet 2 Tab Oral Daily 06/12/15 Finasteride 5 Mg Tablet 5 Mg Oral Daily 05/29/15 Lisinopril 20 Mg Tablet 20 Mg Oral Daily 30 Days 30 Tablet 06/28/15 Metoprolol Tartrate 25 Mg Tablet 25 Mg Oral Twice A Day 05/29/15 Miconazole Nitrate (Antifungal Cream) 10 Applic/15 G Cr 1 Applic Topically Daily 1 Gram 06/28/15 Nitroglycerin (Nitrostat) 0.4 Mg Tablet 0.4 Mg Sublingual Every 5 Minutes X 3 as needed for Chest Pain 06/12/15 Polyethylene Glycol 3350 (Healthylax) 17 Gm Powd.pack 17 Gm Oral Daily as needed for Constipation 15 06/28/15 Primidone 50 Mg Tablet 50 Mg Oral Twice A Day 05/29/15 Psyllium Husk (Psyllium Fiber) 0.52 Gm Capsule 2 Cap Oral Daily 06/12/15 Tamsulosin Hcl 0.4 Mg Cap.er.24h 0.4 Mg Oral Bedtime 30 Days 30 Capsule 06/28/15 Past Home Medications Medication Directions Ordered Status Advair , 07/04/09 Discontinued Atorvastatin Calcium (Lipitor) 40 Mg Tablet, 40 Mg Oral Bedtime 05/30/15 Discontinued Calcium Citrate/Vitamin D3 (Calcium Citrate + D Caplet) 1 Tab Tablet, 1 Tab Oral Twice A Day 01/14/12 Discontinued Calcium Polycarbophil (Fiber Tabs) 625 Mg Tablet, 1250 Mg Oral Twice A Day Discontinued Carvedilol (Coreg) 6.25 Mg Tablet, 6.25 Mg Oral Twice A Day 01/14/12 Discontinued Diphenhydramine Hcl (Sleep Aid) 50 Mg Capsule, 50 Mg Oral Bedtime 05/29/15 Discontinued Hydrocodone/Acetaminophen ([place] 5-325 Tablet) 1 Each Tablet, 1-2 Tab Oral Every 4 Hours as needed for Pain 06/12/15 Discontinued Lactulose 10 G/15 Ml Solution, 10 G Oral Twice A Day 01/14/12 Discontinued Lisinopril 10 Mg Tablet, 10 Mg Oral Daily 06/12/15 Discontinued Lisinopril (Prinivil) 10 Mg Tablet, 10 Mg Oral Daily 05/30/15 Discontinued Metolazone 5 Mg Tablet, 5 Mg Oral Daily 01/14/12 Discontinued Morphine Sulfate (Ms Contin) 30 Mg Tablet.sa, 30 Mg Oral Twice A Day as needed 01/14/12 Discontinued Pantoprazole Sodium (Protonix) 40 Mg Tablet.dr, 40 Mg Oral Daily 01/29/12 Discontinued Salmeterol Xinafoate/Fluticasone (Advair 250-50 Diskus) 1 Each Disk.w.dev, 1 Puff Inhalation Twice A Day as needed for Prn Orders 01/14/12 Discontinued Tiotropium Bowlus (Spiriva) 18 Mcg Cap.w.dev, 18 Mcg Inhalation Daily Discontinued Social History Social History Problem Response Recorded Date/Time Onset Date Status Hx Alcohol Use No 05/29/2015 5:59pm Not Applicable Not Applicable Has the pt used tobacco in the last 12 months No 06/12/2015 3:41pm Not Applicable Not Applicable Tobacco Usage smoke 06/13/2015 5:32pm Not Applicable Not Applicable Query Response Start Date Stop Date Smoking Status Former smoker Hospital Discharge Instructions Instructions: Care Instructions: Reason for Hospitalization: CVA I was in the hospital because (patient own words): I had open heart surgery, and i want to rehab to [facility]. Discharge Diet: lactose intolerant, chopped meats Discharge Activity: Walker with assistance PT/OT/ST to evaluate and treat at SNU. Follow Up Appointments: Dr. Tianna Cottrell on 07/01/15 at 3:25 pm for surgery follow-up. [facility] [address] [place] [address] [address] [place] . Dr. Dario Barron on 07/04/15 at 9:30 am for Urology follow-up. [address] [place] . Dr. Annmarie Mackay on 07/11/15 at 10:30 am for Hosp follow-up. [address] [place] . Dr. Lisa Mitchell on 07/30/15 at 9:20 am for follow-up. Check-in at 9:10 am. Bring Photo ID, Insurance Card, and ALL medications you are taking in the original bottle's. [facility] [address] [place] [address] Dr. [place]. . Pending Lab / Results: No Pending Lab Wound/Incision Care: F/U with Dr. Cottrell for sternal wound. Notify Physician If: Fever, chest pain, SOA, increased confusion or other concerns. Condition at time of discharge: Fair Plan of Care Discharge Date 06/28/15 12:55pm Disposition 04 TO [facility] Instructions/Education Provided Cerebellar Stroke Prescriptions See Medication Section Care Plan and Goals See Discharge Instructions Section Functional Status Query Response Date Recorded Mobility Status Ambulatory w/assist June 27, 2015 3:22pm Assistive Devices Front Wheeled Walker June 27, 2015 3:22pm Activity Limitations Weakness June 27, 2015 3:22pm Feeding Ability Independent June 27, 2015 3:22pm Toileting Ability Assist June 27, 2015 3:22pm Grooming Ability Assist June 27, 2015 3:22pm Dressing Ability Assist June 27, 2015 3:22pm Driving Ability Dependent June 27, 2015 3:22pm Housework Ability Assist June 18, 2015 2:21pm Meal Preparation Ability Dependent June 27, 2015 3:22pm Stair Climbing Ability Assist June 27, 2015 3:22pm Ability to complete ADL's impeded by Impaired Mobility Change in Cognition June 27, 2015 3:22pm Cognitive/Perceptual Impairments None June 27, 2015 3:22pm Visual Assistive Devices Glasses With patient June 18, 2015 2:21pm Preferred Method of Learning Demonstration Listening June 27, 2015 3:22pm Allergies, Adverse Reactions, Alerts No known allergies. Immunizations Query Response on File Recorded Date/Time Hx Influenza Vaccination Y 06/12/15 3:41pm Hx Pneumococcal Vaccination Y ? will ask 06/12/15 3:41pm Hx Influenza Vaccination Y 06/12/15 3:41pm DTaP Vaccine History UNKNOWN 05/29/15 5:59pm Influenza Vaccine Hx Nov 2014 06/12/15 4:05pm Vital Signs Acute Vital Signs Vital Response Date/Time Temperature (Fahrenheit) 97.6 deg F (96.8 - 99.1) 06/28/2015 6:33am Temperature (Calculated Celsius) 36.12857 degrees C (36.0 - 37.3) 06/28/2015 6:33am Temperature Source Oral 05/30/2015 4:15pm Pulse Rate (adult) 67 bpm (60 - 100) 06/28/2015 6:33am Respiratory Rate 16 breaths/min (10 - 20) 06/28/2015 6:33am O2 Sat by Pulse Oximetry 93 % (90 - 100) 06/28/2015 6:33am Oxygen Delivery Method Room Air 05/30/2015 6:30pm Oxygen Delivery Method Room Air 06/28/2015 8:00am Oxygen Flow Rate 1.00 L/min 05/30/2015 5:00pm Blood Pressure 142/86 mm Hg 06/28/2015 6:33am Blood Pressure Source Automatic Cuff 06/28/2015 6:33am Height (Feet) 5 feet 06/27/2015 12:53pm Height (Inches) 8.00 inches 06/27/2015 12:53pm Weight (Kilograms) 92.700 kg 06/27/2015 12:48pm Body Mass Index (BMI) 32.4 06/13/2015 2:58am Results Laboratory Results Test Name Result Units Flags Reference Collection Date/Time Result Date/ Time Comments Total Bilirubin 0.50 MG/DL 0.20-1.30 05/29/2015 5:56pm 05/29/2015 6: 10pm Alkaline Phosphatase 109 U/L 38-126 05/29/2015 5:56pm 05/29/2015 6: 10pm Total Protein 7.7 G/DL 6.3-8.2 05/29/2015 5:56pm 05/29/2015 6:10pm Albumin 4.1 G/DL 3.5-5.0 05/29/2015 5:56pm 05/29/2015 6:10pm Globulin 3.6 G/DL 2.4-3.6 05/29/2015 5:56pm 05/29/2015 6:10pm Albumin/Globulin Ratio 1.1 RATIO 1.1-2.2 05/29/2015 5:56pm 05/29/2015 6 :10pm Aspartate Amino Transf (AST/SGOT) 32 U/L 17-59 05/29/2015 5:56pm 2015 6:10pm Alanine Aminotransferase (ALT/SGPT) 30 U/L 21-72 05/29/2015 5:56pm 6:10pm Troponin I 0.040 ng/ml 0-0.12 05/30/2015 6:33am 05/30/2015 7:31am Troponin values with a difference of 55% increase from orginal troponin value represent a true biological DELTA value. (%increase Calc=Orginal Troponin value, divided by subsequent Troponin value, multiplied by 100) Magnesium Level 2.2 MG/DL 1.6-2.3 05/29/2015 5:52pm 05/29/2015 7:39pm Thyroid Stimulating Hormone (TSH) 1.52 MIU/L 0.47-4.68 05/29/2015 5: 52pm 05/29/2015 8:11pm White Blood Count 5.8 T/MM3 4.5-11.0 06/24/2015 4:37am 06/24/2015 4: 52am Red Blood Count 3.91 M/MM3 L 4.50-5.90 06/24/2015 4:37am 06/24/2015 4: 52am Hemoglobin 11.2 GM/DL L 13.5-17.5 06/24/2015 4:37am 06/24/2015 4:52am Hematocrit 35.3 % L 41-53 06/24/2015 4:37am 06/24/2015 4:52am Mean Corpuscular Volume 90.3 UM3 80-100 06/24/2015 4:37am 06/24/2015 4: 52am Mean Corpuscular Hemoglobin 28.6 UUG 26-34 06/24/2015 4:37am 2015 4:52am Mean Corpuscular Hemoglobin Concent 31.7 GM/DL 31-37 06/24/2015 4:37am 06/24/2015 4:52am RDW Standard Deviation 45.2 FL 36.9-50.2 06/24/2015 4:37am 06/24/2015 4 :52am Platelet Count 342 T/MM3 130-400 06/24/2015 4:37am 06/24/2015 4:52am Mean Platelet Volume 9.5 UM3 9.4-12.4 06/24/2015 4:37am 06/24/2015 4: 52am Neutrophils (%) (Auto) 54.3 % 33-66 06/24/2015 4:37am 06/24/2015 4: 52am Lymphocytes (%) (Auto) 19.7 % L 23-45 06/24/2015 4:37am 06/24/2015 4: 52am Monocytes (%) (Auto) 8.7 % 0-9.0 06/24/2015 4:37am 06/24/2015 4:52am Eosinophils (%) (Auto) 16.4 % H 0-4 06/24/2015 4:37am 06/24/2015 4:52am Basophils (%) (Auto) 0.7 % 0-2 06/24/2015 4:37am 06/24/2015 4:52am Immature Granulocyte % (Auto) 0.2 % 0.0-0.5 06/24/2015 4:37am 2015 4:52am Absolute Neutrophils (auto) 3.2 T/MM3 1.8-7.7 06/24/2015 4:37am 2015 4:52am Absolute Lymphocytes (auto) 1.2 T/MM3 1-4.8 06/24/2015 4:37am 2015 4:52am Absolute Monocytes (auto) 0.5 T/MM3 0-0.8 06/24/2015 4:37am 06/24/2015 4:52am Absolute Eosinophils (auto) 1.0 T/MM3 H 0-0.5 06/24/2015 4:37am 2015 4:52am Absolute Basophils (auto) 0.0 T/MM3 0-0.2 06/24/2015 4:37am 06/24/2015 4:52am Absolute Immature Granulocyte (auto 0.01 T/MM3 0.00-0.03 06/24/2015 4: 37am 06/24/2015 4:52am Icterus Index < 2 0-7 06/24/2015 4:37am 06/24/2015 5:07am Chemistry Specimen Hemolysis < 15 0-25 06/24/2015 4:37am 06/24/2015 5 :07am 0-25: Specimen Exhibited No Hemolysis. Turbidity < 20 0-20 06/24/2015 4:37am 06/24/2015 5:07am Sodium Level 138 MEQ/L 134-144 06/24/2015 4:37am 06/24/2015 5:07am Potassium Level 4.7 MEQ/L 3.6-5 06/24/2015 4:37am 06/24/2015 5:07am Chloride Level 102 MEQ/L 98-107 06/24/2015 4:37am 06/24/2015 5:07am Carbon Dioxide Level 27 MEQ/L 22-30 06/24/2015 4:37am 06/24/2015 5: 07am Anion Gap 9 MEQ/L 5-15 06/24/2015 4:37am 06/24/2015 5:07am Blood Urea Nitrogen 15.0 MG/DL 9-20 06/24/2015 4:37am 06/24/2015 5: 07am Creatinine 1.3 MG/DL 0.8-1.5 06/24/2015 4:37am 06/24/2015 5:07am BUN/Creatinine Ratio 12 RATIO 6-06/24/2015 4:37am 06/24/2015 5:07am Glomerular Filtration Rate Calc 54 06/24/2015 4:37am 06/24/2015 5: 07am Glucose Level 88 MG/DL 75-110 06/24/2015 4:37am 06/24/2015 5:07am Calculated Osmolality 266 MOSM/KG 261-280 06/24/2015 4:37am 06/24/2015 5:07am Calcium Level 9.0 MG/DL 8.4-10.2 06/24/2015 4:37am 06/24/2015 5:07am Iron Level 41 UG/DL L 49-181 06/13/2015 9:41am 06/14/2015 1:47am Total Iron Binding Capacity 251 UG/DL L 261-497 06/13/2015 9:41am 2015 1:56am Percent Iron Saturation 16 % 13-59 06/13/2015 9:41am 06/14/2015 1:56am Microbiology Results Procedure Source Organism/Result Collection Date/Time Result Date/Time Result Status WOUND CULTURE DEEP TISS-AER/AN Leg, Left Lower COAG NEGATIVE STAPHYLOCOCCUS 06/16/2015 7:19pm 06/19/2015 7:26am Final ENTEROCOC FAECALIS - (GROUP D) 06/16/2015 7:19pm 06/19/2015 7:26am Final Name: DAGO TRAN Unit #: [id number] : 1940 Sex: M DISCHARGE SUMMARY Admit Date: 06/12/15 Report #: [id number] [facility] General Date Date DATE: 06/28/15 TIME: 11:13 Attending Physician Jackie Goldman MD Admitting Physician Jackie Goldman MD Consulting Physician Dr. Olga MD Admitting Diagnosis Multi-focal ischemic CVA s/p CABG Left sided hemiparesis Hemianopsia HTN Left leg cellulitis CAD PVD BPH, urine incontinence Dysphagia Obstructive sleep apnea COPD Iron-deficiency anemia Discharge Diagnosis Multi-focal ischemic CVA s/p CABG Left sided hemiparesis Hemianopsia HTN Left leg cellulitis CAD PVD BPH, urine incontinence Dysphagia Obstructive sleep apnea COPD Iron-deficiency anemia Adjustment disorder Laboratory Last hemoglobin 11.2 Iron levels 41 Microbiology Left leg incision grew enterococcus fac. History of Present Illness The patient is a 74-year-old male who was transferred here from [place] because of a postoperative stroke. The patient had an episode of chest pain and had a myocardial infarction. He had bypass surgery at [facility] and then postoperatively developed a stroke. Surgeon here for inpatient rehabilitation. He has a history of hypertension COPD. He denies being diabetic he denies being treated for cholesterol problems. Hospital Course 06/17/15. Evaluated left lower extremity open area that contains to have a small amount of serosanguineous drainage. A wound culture was obtained yesterday that showing rare gram- positive cocci with epithelial cells. No acute erythema or change in wound. He denies discomfort. Also evaluated left upper leg incision and barbara. Nursing staff does report that today is day 14 of barbara can be removed. Wound appears to be healing well. Have asked staff to remove barbara. Continue with Augmentin antimicrobial coverage. Patient's white count is normal at 8.0. He is afebrile and vital signs remained stable. No obvious signs of infection are present. Continue to encourage patient to PT and OT for continued strengthening. Continue rehabilitation as per Dr. Goldman 06/19/15 He has been received Augmentin for 7 days. Microbiology of LLE wound culture shows Enterococci Faecalis, which shows susceptibility to ampicillin, doxycycline, linezolid and vancomycin. Will discuss further with Dr Espinoza regarding the need for further treatment given clinical improvement of wound. Continue with Trospium BID for urinary incontinence. Continue with scheduled Colace BID, Miralax daily and add scheduled MOM today and tomorrow. Will also have staff give Dulcolax sup this evening. Encourage continued work with PT,OT and ST for further strengthening 06/20/15 Continue with Amoxicillin for antimicrobial coverage of Entercocci bacteria from would culture. 06/24 would complete a 14 day course. Continue to work with speech therapy for dysphasia and dietary recommendations. Continue with PT and OT for continued strengthening. Bowels have moved aggressively following milk of magnesia and Dulcolax suppository last evening. Blood pressures have been stable this morning was 133/68. 06/20 Doing well with minimal residual left hemiparesis most notable in the left foot. Will recheck CBC on Wednesday to evaluate anemia and white count before considering discontinuation of antibiotics. Patient reports minimal drainage at the site of vein graft were surgical wound infection subsequently developed. No current ischemic symptoms. Blood pressure modestly elevated today however review of blood pressures over preceding days does not suggest need for modification and medications currently. Continue therapies. 06/22/15 Flomax 0.4 milligrams has been added at bedtime to help with urinary incontinence. Continue with amoxicillin for antimicrobial coverage of left lower extremity wound/drainage Continue with current blood pressure regimen to as blood pressures have been stable. Continue to encourage work with PT and OT for continued strengthening and function. 06/23/15 Continue with amoxicillin to be completed on Saturday 06/24 No reported urinary incontinence. Continue with Flomax as scheduled. Continue with current blood pressure regimen to as blood pressures have been stable. Continue to encourage work with PT and OT for continued strengthening and function. Patient states he is eager to be discharged home and is wanting to know plans for this week. 06/23 Amoxicillin course will be completed tomorrow. Labs stable; VSS. Discussed with Dr. Goldman - possible discharge to [facility] this week. A/P discussed with Dr. Espinoza. She recommends f/u with Dr. Cottrell for leg wound after IRU discharge. 06/25 Surgical wounds continue to heal. Amoxicillin course completed. Will need outpt f/u with Dr. Cottrell. Urinary incontinence much improved. Continue with therapy. Poss discharge to SNF later this week. 06-26: On date of discharge, patient was feeling great. His urine incontinence and lower leg incision cellulitis had resolved. Significant progress was made in rehab. We kept him on same medications for discharge to SNU except changed his fiber to his home medication (pills here were very large and needed crushed.) During his stay, mood significantly improved. felt hopeful for stay in SNU and then discharge to home after that. Continue to walk with walker and he will need ST/PT/OT at SNU. Continues to have some mild left neglect. Is on chopped meats diet because he thinks that is easier at this point, but he met all dysphagia goals during stay. He will f/u with Ronit Barron Amirani and Dr. Mackay, his PCP. Problems: (1) Arterial ischemic stroke, multifocal, multiple vascular territories, acute Status: Acute Assessment & Plan: Admit to IRU for intensive rehab. 06-16: Continue rehab. Patient doing well, but biggest concern at this point is memory. Continue ST/PT/OT. 5-11: Continues to improve. Continue inpatient rehab services. Will discuss long -term discharge plans at team meeting on Wednesday. has concerns she will be out of town next Wednesday and Wednesday at a graduation in [place]. We will keep her updated. If he does require SNU, they will likely go to [facility] if that's an option. (2) Coronary artery disease Status: Chronic (3) Cellulitis and abscess of leg Status: Resolved Assessment & Plan: Has mild erythema and drainage of left leg incision. Will start augmentin and monitor carefully. No systemic symptoms. Will change dressings daily. 5-5: Still with mild erythema, but no pain today so that is improved. Continue augmentin for total of 7 days but will continue to watch. 5-6: No worsening pus or erythema. Continue augmentin. 5-9: Greatly improved erythema over lower leg incisions. Less drainage. Finish 7 days of augmentin. Will have barbara removed today from left thigh incision. 5-11: Is clinically improving, but culture grew enteroccocus and augmentin not specifically listed in sensitivities. It was sensitive to ampicillin and doxycycline. [employer] will discuss with pharmacy and Dr. Espinoza to see if we should switch to doxy at this point. (4) Hypertension Status: Chronic Assessment & Plan: Kept patient on metoprolol. Will consult hospitalist to manage. Will consult Amirani if needed. 5-5: Hospitalist following. (5) Left hemiparesis Status: Acute Assessment & Plan: Secondary to acute ischemic CVA. Rehab consulted. 5-5: Continue intensive rehab plan with ST/OT/PT. Is on swallow precautions. 5-6: Continue rehab. Participating well. 5-11: Continue PT/OT/ST. Is improving and participating well. (6) Adjustment disorder Status: Acute Assessment & Plan: Will consult Dr. Medina. Depression after AMI and CVA is very common, so she hopefully can recommend the best treatment for him. 5-5: Continues to have symptoms. Dr. Medina has not seen him yet, but we will remind her today. 5-6: Thank you to Dr. Medina for consult on patient. She started lexapro 10 mg po daily. Mood is actually improved today. 06-16-16: Continue lexapro. Mood stabilizing. -: Mood is improved. Continue lexapro. (7) Incontinence of urine Status: Resolved Assessment & Plan: Will monitor. 16: He does have urge, but just can't hold his urine until he gets to the bathroom. This is new for him since the CVA and may just take time to re-learn, but I will ask Dr. Barron to come by and see patient and see if he has any specific ideas to help Philippe with this issue. -: I did speak with Dr. Barron a couple of days ago and he recommended trying Sanctura. So far, this has not helped his incontinence. Discussed with hospitalist team and they will consider further treatment. This incontinence is a big concern for him as he considers transitioning to home eventually. 5-16: Improved on flomax. (8) Dysphagia due to recent stroke Status: Resolved Assessment & Plan: Consulted speech. Patient was on normal diet in acute hospital, but will adjust as needed. 5-5: On swallow precautions. Getting ST 60 minutes/day, 5 days/week. 9: On 02/11 chopped meats diet now. Continue to monitor. Drinking regular liquids. -: Continue ST. Continues to improve. (9) Obstructive sleep apnea Status: Chronic Assessment & Plan: Patient does not use bipap at home, so we will not do that here, but will monitor symptoms. (10) COPD (chronic obstructive pulmonary disease) Status: Chronic Assessment & Plan: Will keep on home Symbicort (can substitute Advair if needed.) Will consult RT for incentive spirometry and inhaler management. 5-6: Incentive spirometry ordered. Continue inhaler. (11) BPH (benign prostatic hyperplasia) Status: Chronic (12) Atherosclerotic peripheral vascular disease of extremity Status: Chronic Assessment & Plan: On plavix. (13) Constipation Status: Resolved Assessment & Plan: 5-5: Will restart colace and miralax prn. 5-11: Hospitalist adding medication to regimen for treatment. (14) Anemia Status: Acute Assessment & Plan: 5-6: Hospitalist ordered iron studies and iron levels are low. Hospitalist will continue to manage. 5-9: Hemoglobin dropping almost 2 points. Hospitalist will continue to follow. Low iron levels were noted last week, so I would expect they will replace iron and continue to monitor this. (15) Incontinence of bowel Status: Resolved Assessment & Plan: Will monitor. (16) Hemianopsia Status: Resolved Assessment & Plan: 06-18: Reports any vision loss is currently resolved. Code Status Full Code Home Meds Active Scripts Miconazole Nitrate (Antifungal Cream) 10 Applic/15 G Cr, 1 APPLIC TOP DAILY, #1 G 0 Refills Prov:JACKIE GOLDMAN MD 06/28/15 Polyethylene Glycol 3350 (Healthylax) 17 Gm Powd.pack, 17 GM PO DAILY Y for constipation, #15 0 Refills Prov:JACKIE GOLDMAN MD 06/28/15 Bisacodyl (Bisacodyl) 10 Mg Supp.rect, 10 MG RECTALLY DAILY Y for CONSTIPATION, #15 0 Refills Prov:JACKIE GOLDMAN MD 06/28/15 Escitalopram Oxalate (Escitalopram Oxalate) 10 Mg Tablet, 10 MG PO DAILY for 30 Days, #30 TAB 0 Refills Prov:JACKIE GOLDMAN MD 06/28/15 Acetaminophen (Tylenol) 325 Mg Tablet, 325-650 MG PO Q5H Y for DISCOMFORT, #30 TAB 0 Refills Prov:JACKIE GOLDMAN MD 06/28/15 Lisinopril (Lisinopril) 20 Mg Tablet, 20 MG PO DAILY for 30 Days, #30 TAB 0 Refills Prov:JACKIE GOLDMAN MD 06/28/15 Tamsulosin HCl (Tamsulosin HCl) 0.4 Mg Cap.er.24h, 0.4 MG PO HS for 30 Days, # 30 CAP 0 Refills Prov:JACKIE GOLDMAN MD 06/28/15 Diphenhydramine HCl (Diphenhydramine HCl) 50 Mg Capsule, 50 MG PO HS Y for insomnia for 30 Days, #30 CAP 0 Refills Prov:JACKIE GOLDMAN MD 06/28/15 Reported Medications Psyllium Husk (Psyllium Fiber) 0.52 Gm Capsule, 2 CAP PO DAILY 06/12/15 Docusate Sodium (Docusate Sodium) 100 Mg Capsule, 2 CAP PO DAILY, #30 CAP 06/12/15 Nitroglycerin (Nitrostat) 0.4 Mg Tablet, 0.4 MG SL Q5MIN Y for CHEST PAIN, TAB 06/12/15 Ferrous Sulfate (Iron Supplement) 325 Mg Tablet, 2 TAB PO DAILY, TAB 06/12/15 Atorvastatin Calcium (Atorvastatin Calcium) 80 Mg Tablet, 1 TAB PO HS, TAB 06/12/15 Budesonide/Formoterol Fumarate (Symbicort 160-4.5 Mcg Inhaler) 10.2 Gm Hfa.aer.ad, 1 PUFF INH DAILY 05/29/15 Doxazosin Mesylate (Doxazosin Mesylate) 2 Mg Tablet, 2 MG PO DAILY 05/29/15 Finasteride (Finasteride) 5 Mg Tablet, 5 MG PO DAILY 05/29/15 Primidone (Primidone) 50 Mg Tablet, 50 MG PO BID 05/29/15 Metoprolol Tartrate (Metoprolol Tartrate) 25 Mg Tablet, 25 MG PO BID 05/29/15 Clopidogrel Bisulfate (Plavix) 75 Mg Tablet, 75 MG PO DAILY 01/14/12 Aspirin (Low Dose Aspirin Ec) 81 Mg Tablet.dr, 81 MG PO DAILY 01/14/12 Discontinued Reported Medications Lisinopril (Lisinopril) 10 Mg Tablet, 10 MG PO DAILY, TAB 06/12/15 Hydrocodone/Acetaminophen ([place] 5-325 Tablet) 1 Each Tablet, 1-2 TAB PO Q4H Y for PAIN, TAB 06/12/15 Calcium Polycarbophil (Fiber Tabs) 625 Mg Tablet, 1250 MG PO BID 05/29/15 Fluticasone/Salmeterol (Advair 250-50 Diskus) 1 Each Disk.w.dev, 1 PUFF INH BID Y for PRN ORDERS 01/14/12 Discharge Disposition to U Copies To 1: SHRUTHI MACKAY DO Copies To 2: FLORY MITCHELL MD Documentation Requirements Documenting Diagnosis Anemia Anemia Anemia Etiology: Iron Deficiency Anemia Acuity: Unable to Determine JACKIE GOLDMAN MD June 28, 2015 11:17 Procedures Procedure Status Date Provider(s) ROUTINE VENIPUNCTURE Completed 05/29/15 ROUTINE VENIPUNCTURE Completed 05/29/15 CHEST X-RAY 1 VIEW FRONTAL Completed 05/29/15 COMPREHEN METABOLIC PANEL Completed 05/29/15 ASSAY OF MAGNESIUM Completed 05/29/15 ASSAY THYROID STIM HORMONE Completed 05/29/15 ASSAY OF TROPONIN QUANT Completed 05/29/15 ASSAY OF TROPONIN QUANT Completed 05/29/15 ASSAY OF TROPONIN QUANT Completed 05/29/15 COMPLETE CBC W/AUTO DIFF WBC Completed 05/29/15 ELECTROCARDIOGRAM TRACING Completed 05/29/15 ELECTROCARDIOGRAM TRACING Completed 05/29/15 ELECTROCARDIOGRAM TRACING Completed 05/29/15 ELECTROCARDIOGRAM TRACING Completed 05/29/15 TTE W/DOPPLER COMPLETE Completed 05/29/15 L HRT ARTERY/VENTRICLE ANGIO Completed 05/29/15 FLORY MITCHELL MD AIRWAY INHALATION TREATMENT Completed 05/29/15 HYDRATE IV INFUSION ADD-ON Completed 05/29/15 THER/PROPH/DIAG INJ IV PUSH Completed 05/29/15 TX/PRO/DX INJ NEW DRUG ADDON Completed 05/29/15 EMERGENCY DEPT VISIT Completed 05/29/15 [id number] ITEM OR SERVICE Completed 05/29/15 [id number] ITEM OR SERVICE Completed 05/29/15 405040TKO-[id number] ITEM OR SERVICE Completed 05/29/15 455606TLC-[id number] ITEM OR SERVICE Completed 05/29/15 273215FDM-BSIMBUR ITEM OR SERVICE Completed 05/29/15 812410MGE-ZKYLMMA ITEM OR SERVICE Completed 05/29/15 562084MJV-BSFJELG ITEM OR SERVICE Completed 05/29/15 [id number]-YRFJHGF ITEM OR SERVICE Completed 05/29/15 368534QCY-QLQYMME ITEM OR SERVICE Completed 05/29/15 607089NDX-YZZHOGV ITEM OR SERVICE Completed 05/29/15 049918GWI-OQACYTA ITEM OR SERVICE Completed 05/29/15 006431HYE-VWIKWGQ ITEM OR SERVICE Completed 05/29/15 172454BYY-VHSEGVQ ITEM OR SERVICE Completed 05/29/15 516592PMA-SSNEYMY ITEM OR SERVICE Completed 05/29/15 030724ZDV-ASXLAYP ITEM OR SERVICE Completed 05/29/15 010154MKXGB THAN PEEL-AWAY Completed 05/29/15 863916"HOSPITAL OBSERVATION SERVICE, PER HOUR" Completed 05/29/15 509591"HOSPITAL OBSERVATION SERVICE, PER HOUR" Completed 05/29/15 585528"HOSPITAL OBSERVATION SERVICE, PER HOUR" Completed 05/29/15 971560"INJECTION, HYDRALAZINE HCL, UP TO 20 MG" Completed 05/29/15 783085"INJECTION, HEPARIN SODIUM, PER 1000 UNITS" Completed 05/29/15 433992"INJECTION, HEPARIN SODIUM, PER 1000 UNITS" Completed 05/29/15 162737"INJECTION, MIDAZOLAM HYDROCHLORIDE, PER 1 MG" Completed 05/29/15"INJECTION, MIDAZOLAM HYDROCHLORIDE, PER 1 MG" Completed 05/29/15"INJECTION, FENTANYL CITRATE, 0.1 MG" Completed 05/29/15432089TMGQGYVMBXES DRUGS Completed 05/29/15"INFUSION, NORMAL SALINE SOLUTION , 1000 CC" Completed 05/29/15"LOW OSMOLAR CONTRAST MATERIAL, 300-399 MG/ML IODINE C Completed "LOW OSMOLAR CONTRAST MATERIAL, 300-399 MG/ML IODINE C Completed "LOW OSMOLAR CONTRAST MATERIAL, 300-399 MG/ML IODINE C Completed Encounters Encounter Location Arrival/Admit Date Discharge/Depart Date Attending Provider Discharged Inpatient [facility] 06/12/15 1:40pm 06/28/15 12:55pm JACKIE GOLDMAN MD Departed Surgical Day Care [facility] 05/29/15 7:18pm 05/30/15 7: 08pm FLORY MITCHELL MD Recent Diagnosis AAA (abdominal aortic aneurysm) Adjustment disorder Anemia Arterial ischemic stroke, multifocal, multiple vascular territories, acute Atherosclerotic peripheral vascular disease of extremity BPH (benign prostatic hyperplasia) COPD (chronic obstructive pulmonary disease) Carotid stenosis Cellulitis and abscess of leg Chest pain Constipation Coronary artery disease Dysphagia due to recent stroke Elevated troponin I level Hemianopsia Hypertension Incontinence of bowel Incontinence of urine Left hemiparesis Obstructive sleep apnea
--- OUTSIDE RECORDS SUMMARY | 2016-05-21 20:56 | XMS REPORT | Referral Summary ---
Author Author [facility] Organization [facility] Address Unknown Phone Unavailable Care Team Providers Care Fishery Biologist Name Role Phone Daryl Lazcano Primary Care Physician [phone] Encounter VC Date(s): 07/27/14 - 07/27/14 [facility] [address] [place] [address] Discharge Diagnosis: HTN (hypertension) Discharge Disposition: 01-Home or Self Care Attending Physician: Daryl Lazcano DO Admitting Physician: Daryl Lazcano DO Vital Signs Most recent to 1 oldest [Reference Range]: Temperature Tympanic 35.3 degC [36.6-38.1 degC] *LOW* (07/27/14 9:48 AM) Peripheral Pulse 64 bpm Rate [60-100 bpm] (07/27/14 9:48 AM) Blood Pressure 170/90 mmHg [90-140/60-90 mmHg] *HI* (07/27/14 9:48 AM) Problem List Condition Effective Dates Status [...] DAILY, # 90 tabs, 3 Refill(s), eRx: [id number], TAKE ONE TABLET BY MOUTH ONCE DAILY Start Date: 01/25/15 Status: Ordered Fiber Choice See Instructions, 2 caps BID, 0 Refill(s) Start Date: 10/31/13 Status: Ordered lisinopril 40 mg oral tablet 40 mg 1 tabs, Oral, Daily, # 30 tabs, 6 Refill(s), Pharmacy: [facility] Start Date: 08/30/14 Status: Ordered Metoprolol Tartrate 25 mg oral tablet See Instructions, TAKE ONE TABLET BY MOUTH TWICE DAILY, # 60 tabs, 3 Refill(s), eRx: [facility], TAKE ONE TABLET BY MOUTH TWICE DAILY Start Date: 10/16/14 Status: Ordered Plavix 75 mg oral tablet [...] Daily, # 1 Each, 6 Refill(s), Pharmacy: [id number] Start Date: 09/26/14 Status: Ordered Results Chemistry Most recent to 1 oldest [Reference Range]: Sodium Lvl [135-144 138 mEq/L mEq/L] (07/27/14 11:00 AM) Potassium Lvl 4.4 mEq/L [3.5-5.2 mEq/L] (07/27/14 11:00 AM) Chloride [99-111 106 mEq/L mEq/L] (07/27/14 11:00 AM) CO2 [23-31 mEq/L] 27 mEq/L (07/27/14 11:00 AM) AGAP [3-20] 5 (07/27/14 11:00 AM) BUN [8-26 mg/dL] 15 mg/dL (07/27/14 11:00 AM) Glucose Lvl [70-99 82 mg/dL mg/dL] (07/27/14 11:00 AM) Creatinine Lvl 1.16 mg/dL [0.72-1.25 mg/dL] (07/27/14 11:00 AM) eGFR [>60 mL/min] >60 mL/min 1 (07/27/14 11:00 AM) Calcium Lvl 9.8 mg/dL [8.9-10.5 mg/dL] (07/27/14 11:00 AM) Magnesium Lvl 2.3 mg/dL [1.6-2.6 mg/dL] (07/27/14 11:00 AM) 1Result Comment: Multiply eGFR results by 1.21 for race. Immunizations Vaccine Date Refusal Reason influenza virus [...] Visit Note Author: Daryl Lazcano DO Date: 07/27/14 Assessment/Plan HTN (hypertension) 1. Continue with current blood pressure regimen. 2. Again diet modification recommended and stressed to the patient, he voiced understanding. 3. We'll start him on chlorthalidone 25 mg daily. 4. We'll check basic metabolic profile and magnesium today and adjust his medications according to his renal function. 5. Follow-up in one month for reevaluation. Ordered: chlorthalidone, 25 mg 1 tabs, Oral, Daily, # 30 tabs, 0 Refill(s), Pharmacy: [id number], 1 tabs Oral Daily Basic Metabolic Panel Magnesium Level Office Visit Level 4 Est 27007 Future Scheduled TestsReferral* Return to Clinic 07/16/14 2:08 PM Referrals to Other Providers Referred by: Bruno Mello MD
--- OUTSIDE RECORDS SUMMARY | 2016-05-21 20:56 | XMS REPORT | Referral Summary ---
Author Author [facility] Organization [facility] Address Unknown Phone Unavailable Care Team Providers Care Dental Amalgam Processor Name Role Phone Daryl Lazcano Primary Care Physician [phone] Encounter VC Date(s): 08/26/15 - 08/26/15 [facility] [address] [place] [address] Discharge Diagnosis: Scrotal lesion Discharge Disposition: 01-Home or Self Care Attending Physician: Daryl Lazcano DO Admitting Physician: Daryl Lazcano DO Vital Signs Most recent to 1 oldest [Reference Range]: Temperature Tympanic 36.3 degC [36.6-38.1 degC] *LOW* (08/26/15 1:44 PM) Peripheral Pulse 74 bpm Rate [60-100 bpm] (08/26/15 1:44 PM) Blood Pressure 112/68 mmHg [90-140/60-90 mmHg] (08/26/15 1:44 PM) SpO2 96 % (08/26/15 1:44 PM) Problem List Condition Effective Dates [...] ) Cardiac Active disorder(Confirmed)3 COPD(Confirmed)4 Active claudication(Confirm 2012 Active ed) MILDLY DILATED AAA Active 3.5 [...] Reactions, Alerts No Known Medication Allergies Medications acetaminophen 650 mg, Oral, q5hr, as needed for pain, 0 Refill(s) Start Date: 07/02/15 Status: Ordered Aspirin Low Dose 81 mg oral delayed release tablet 81 mg 1 tabs, Oral, Daily, # 30 tabs, 6 Refill(s), Pharmacy: [facility], 1 tabs Oral Daily Start Date: 07/16/15 Status: Ordered atorvastatin 80 mg oral tablet 80 mg 1 tabs, Oral, Daily, # 30 tabs, 3 Refill(s), Pharmacy: [facility], 1 tabs Oral Daily Start Date: 07/18/15 Status: Ordered Bisac-Evac 10 mg rectal suppository 10 mg 1 supp, Rectal, Daily, as needed for constipation, # 10 supp, 1 Refill(s) , Pharmacy: [facility], 1 supp Rectal Daily,PRN:as needed for constipation Start Date: 07/16/15 Status: Ordered diphenhydrAMINE 50 mg, Oral, Bedtime (once a day), as needed for sleep, 0 Refill(s) Start Date: 07/02/15 Status: Ordered Dulcolax Stool Softener 200 mg, Oral, Daily, 0 Refill(s) Start Date: 05/30/15 Status: Ordered escitalopram 10 mg oral tablet 10 mg 1 tabs, Oral, Daily, # 30 tabs, 6 Refill(s), Pharmacy: [facility], 1 tabs Oral Daily Start Date: 07/16/15 Status: Ordered ferrous sulfate 325 mg (65 mg elemental iron) oral tablet 325 mg 1 tabs, Oral, BID, # 60 tabs, 3 Refill(s), Pharmacy: [facility], 1 tabs Oral BID,x30 days Start Date: 08/26/15 Stop Date: 12/24/15 Status: Ordered finasteride 5 mg oral tablet 5 mg 1 tabs, Oral, Daily, # 30 tabs, 6 Refill(s), Pharmacy: [facility], 1 tabs Oral Daily Start Date: 07/16/15 Status: Ordered Lasix 20 mg oral tablet 20 mg 1 tabs, Oral, BID, # 60 tabs, 3 Refill(s), Pharmacy: [facility], 1 tabs Oral BID,x30 days Start Date: 08/26/15 Stop Date: 12/24/15 Status: Ordered lisinopril 20 mg oral tablet 20 mg 1 tabs, Oral, Daily, # 30 tabs, 6 Refill(s), Pharmacy: [facility] Start Date: 07/16/15 Status: Ordered metoprolol tartrate 25 mg oral tablet 25 mg 1 tabs, Oral, BID, # 60 tabs, 6 Refill(s), Pharmacy: [facility] Start Date: 07/16/15 Status: Ordered MiraLax oral powder for reconstitution 17 g, Oral, Daily, as needed for constipation, # 255 g, 1 Refill(s), Pharmacy: [facility] Start Date: 07/16/15 Status: Ordered Nitrostat 0.4 mg sublingual tablet 0.4 mg 1 tabs, SubLingual, q5min, Angina/Chest Pain, # 25 Each, 6 Refill(s), other reason (Rx) Start Date: 06/11/15 Status: Ordered nystatin 100,000 units/g topical powder 1 elle, Topical, TID, as needed for rash, # 15 g, 0 Refill(s), Pharmacy: [facility] Start Date: 07/18/15 Stop Date: 01/17/16 Status: Ordered OTC Psyllium Fiber OTC Psyllium Fiber, 2 caps oral daily, 0 Refill(s) Start Date: 05/30/15 Status: Ordered Plavix 75 mg oral tablet 75 mg 1 tabs, Oral, Daily, # 30 tabs, 6 Refill(s), Pharmacy: [facility], 1 tabs Oral Daily Start Date: 07/16/15 Status: Ordered primidone 50 mg oral tablet 50 mg 1 tabs, Oral, BID, # 60 tabs, 6 Refill(s), Pharmacy: [facility], 1 tabs Oral BID Start Date: 07/16/15 Status: Ordered Symbicort 160 mcg-4.5 mcg/inh inhalation aerosol 2 puffs, Inhalation, Daily, # 1 Each, 6 Refill(s), Pharmacy: [facility] Start Date: 07/16/15 Status: Ordered tamsulosin 0.4 mg oral capsule 0.4 mg 1 caps, Oral, Daily, # 30 caps, 6 Refill(s), Pharmacy: [facility], 1 caps Oral Daily Start Date: 07/16/15 Status: Ordered Results No data available for [...] Extracted from: Title: Office Visit Note Author: ReedDaryl scales Date: 08/26/15 Assessment/Plan 1.Scrotal lesion 1. He appears to have a mild excoriation the left side of the scrotum but most concerning skin lesions. 2. Follow-up if worsening presentation. Ordered: Office Visit Level 4 Est 48480 Anemia 1. Continue iron replacement. 2. Recheck CBC in 3 months. Ordered: Office Visit Level 4 Est 80063 Dependent edema 1. The swelling has almost completely resolved. 2. Continue with Lasix 20 mg twice a day. 3. Recheck electrolytes in 3 months. 4. Follow-up in 3 months time for reevaluation. Ordered: Office Visit Level 4 Est 21134 HTN (hypertension) 1. Blood pressures well controlled. 2. Low salt diet recommended. 3. Follow-up in 3 months. Ordered: CBC w/ Differential Comprehensive Metabolic Panel Office Visit Level 4 Est 70469 Orders: ferrous sulfate, 325 mg 1 tabs, Oral, BID, # 60 tabs, 3 Refill(s), Pharmacy: [facility], 1 tabs Oral BID,x30 days furosemide, 20 mg 1 tabs, Oral, BID, # 60 tabs, 3 Refill(s), Pharmacy: [facility], 1 tabs Oral BID,x30 days
--- OUTSIDE RECORDS SUMMARY | 2016-05-21 20:56 | XMS REPORT | Referral Summary ---
Author Author [facility] Organization [facility] Address Unknown Phone Unavailable Care Team Providers Care Rectification Printer Name Role Phone Daryl Lazcano Primary Care Physician [phone] Encounter VC Date(s): 11/16/14 - 11/16/14 [facility] [address] [place] [address] Discharge Disposition: 01-Home or Self Care Attending Physician: Michi Jiménez APRN Admitting Physician: Michi Jiménez APRN Vital Signs Most recent to 1 oldest [Reference Range]: Temperature Tympanic 36.4 degC [36.6-38.1 degC] *LOW* (11/16/14 10:21 AM) Peripheral Pulse 68 bpm Rate [60-100 bpm] (11/16/14 10:21 AM) Blood Pressure 142/78 mmHg [90-140/60-90 mmHg] *HI* (11/16/14 10:21 AM) SpO2 93 % (11/16/14 10:21 AM) Problem List Condition Effective Dates Status [...] ) COPD(Confirmed)1 Active claudication(Confirm 2011 Active ed) MILDLY DILATED [...] DAILY, # 90 tabs, 3 Refill(s), eRx: [facility], TAKE ONE TABLET BY MOUTH ONCE DAILY Start Date: 01/25/15 Status: Ordered Fiber Choice See Instructions, 2 caps BID, 0 Refill(s) Start Date: 10/31/13 Status: Ordered finasteride 5 mg oral tablet 5 mg 1 tabs, Oral, Daily, # 30 tabs, 0 Refill(s) Start Date: 04/24/15 Status: Ordered lisinopril 40 mg oral tablet See Instructions, TAKE ONE TABLET BY MOUTH ONCE DAILY, # 30 tabs, 2 Refill(s), eRx: [facility], TAKE ONE TABLET BY MOUTH ONCE DAILY Start Date: 04/10/15 Status: Ordered lisinopril 40 mg oral tablet 40 mg 1 tabs, Oral, Daily, # 30 tabs, 6 Refill(s), Pharmacy: [facility] Start Date: 08/30/14 Status: Ordered Metoprolol Tartrate 25 mg oral tablet See Instructions, TAKE ONE TABLET BY MOUTH TWICE DAILY, # 60 tabs, eRx: [facility], TAKE ONE TABLET BY MOUTH TWICE DAILY Start Date: 05/14/15 Status: Ordered Plavix 75 mg oral tablet [...] Daily, # 1 Each, 6 Refill(s), Pharmacy: [facility] Start Date: 09/26/14 Status: Ordered Results Microbiology Reports TEST: Wound Culture STATUS: Auth (Verified) BODY SITE: Elbow, Left SOURCE: Wound COLLECTED DATE/TIME: 11/16/14 12:00 PM Wound Culture Skin concetta present Immunizations Vaccine Date Refusal Reason influenza virus vaccine, live 12/08/12 influenza virus vaccine, live 10/31/12 pneumococcal 13-valent conjugate vaccine1 12/07/13 pneumococcal 23-polyvalent vaccine 12/08/12 tetanus-diphth toxoids (Td) adult/adol 05/02/03 zoster vaccine live2 12/14/13 1Result Comment: [12/08/2013] see scanned document 2Result Comment: [12/14/2013] see scanned document Procedures Procedure Date Related Diagnosis Body Site Angiogram and stent placement/Dr Barbosa-1 Colonoscopies2 embolectomy-rt lower extremity-Dr Barbosa3 Hospitalization PEREODONTAL GUMS4 STENT TO THE LEFT COMMAN ILIAC ARTERY5 1claudication 2011 3PVD- p angiogram got embolis- 11-30-2011. 4See Conversion Document 5Peripheral vascular disease 11/16/2011. Social History Social History Type Response Smoking Status Former smoker; Type: Cigarettes Assessment and Plan Extracted from: Title: Office Visit Note Author: Michi Jiménez APRN Date: 11/16/14 Assessment/Plan Wound of left upper extremity It is hard to tell what his initial source of injury may have been, whether it was something bacterial or a bug bite of some kind. We will get a wound culture to follow this from an infection standpoint. Additionally, due to its increasing size and erythematous appearance we will start him on Bactrim DS to cover him over the weekend. He will follow up with us after the weekend to evaluate the status of this wound. Future Scheduled TestsReferral* Return to Clinic 07/16/14 2:08 PM Referrals to Other Providers Referred by: Bruno Mello MD
--- OUTSIDE RECORDS SUMMARY | 2016-05-21 20:56 | XMS REPORT | Referral Summary ---
Author Author [facility] Organization [facility] Address Unknown Phone Unavailable Care Team Providers Care Ward Attendant Name Role Phone Daryl Lazcano Primary Care Physician [phone] Encounter VC Date(s): 07/04/15 - 07/04/15 [facility] [address] [place] [address] [place] [id number] Discharge Diagnosis: Acute left hemiparesis Discharge Diagnosis: Family history of prostate cancer Discharge Diagnosis: BPH with obstruction/lower urinary tract symptoms Discharge Diagnosis: Essential hypertension Discharge Diagnosis: Urinary frequency Discharge Diagnosis: Recent cerebrovascular accident (CVA) Discharge Disposition: 01-Home or Self Care Attending Physician: Mustapha Barron JR, MD Admitting Physician: Mustapha Barron JR, MD Referring Physician: Daryl Lazcano DO Vital Signs Most recent to 1 oldest [Reference Range]: Peripheral Pulse 72 bpm Rate [60-100 bpm] (07/04/15 9:34 AM) Respiratory Rate 18 br/min [14-20 br/min] (07/04/15 9:34 AM) Blood Pressure 110/60 mmHg [90-140/60-90 mmHg] (07/04/15 9:34 AM) SpO2 96 % (07/04/15 9:34 AM) Problem List Condition Effective Dates Status [...] reason (Rx) Start Date: 06/11/15 Status: Ordered Bisac-Evac 10 mg rectal suppository 10 mg 1 supp, Rectal, Daily, as needed for constipation, # 10 supp, 0 Refill(s) Start Date: 07/02/15 Status: Ordered diphenhydrAMINE 50 mg, Oral, Bedtime (once a day), as needed for sleep, 0 Refill(s) Start Date: 07/02/15 Status: Ordered diphenhydrAMINE 50 mg, Oral, Bedtime (once a day), TAKE FOR SLEEP, 0 Refill(s) Start Date: 05/30/15 Status: Ordered doxazosin 2 mg, Oral, Daily, 0 Refill(s) Start Date: 05/30/15 Status: Ordered Dulcolax Stool Softener 200 mg, Oral, Daily, 0 Refill(s) Start Date: 05/30/15 Status: Ordered escitalopram 10 mg oral tablet 10 mg 1 tabs, Oral, Daily, 0 Refill(s) Start Date: 07/02/15 Status: Ordered ferrous sulfate 325 mg (65 [...] reason (Rx) Start Date: 06/11/15 Status: Ordered miconazole 2% topical cream 1 elle, Topical, Bedtime (once a day), 0 Refill(s) Start Date: 07/02/15 Status: Ordered MiraLax 17 g, Oral, Daily, as needed for constipation, 0 Refill(s) Start Date: 07/02/15 Status: Ordered Nitrostat 0.4 mg sublingual tablet 0.4 mg 1 tabs, SubLingual, q5min, Angina/Chest Pain, # 25 Each, 6 Refill(s), other reason (Rx) Start Date: 06/11/15 Status: Ordered OTC Psyllium Fiber OTC Psyllium [...] Daily, # 1 Each, 6 Refill(s), Pharmacy: [id number] Start Date: 09/26/14 Status: Ordered tamsulosin 0.4 mg oral capsule 0.4 mg 1 caps, Oral, Daily, 0 Refill(s) Start Date: 07/02/15 Status: Ordered Results No data available for [...] Cigarettes Assessment and Plan Extracted from: Title: Ambulatory Patient Education Author: Mustapha Barron JR, MD Date : 07/04/15 Follow Up With: Where: When: [address]; [facility] [place] [id number] Business (1) Within 3 to 5 days Comments: Follow Up With: Where: When: Mustapha Barron [address] [place] [address] Drive; [facility] [place] [phone] [place] (1[place] In 3 months 10/04/2015 Comments: Extracted from: Title: Office Visit Note Author: Mustapha Barron JR, MD Date: 07/04/15 Assessment/Plan 1.Urinary frequency Patientis started on tamsulosin. The urinary frequency is betterbut still frequently going to the bathroom. Continue taking the tamsulosin. Recheck in my office in 3 months. PSA a week before next visit. Ordered: Office Visit Level 3 Est 50931 2.BPH with obstruction/lower urinary tract symptoms Continue finasteride and tamsulosin. Ordered: Office Visit Level 3 Est 23579 3.Recent cerebrovascular accident (CVA) Patient is in the rehabilitation unit in [place] Ordered: Office Visit Level 3 Est 10624 4.Family history of prostate cancer I ordered a PSA on him 3 months. He is on finasteride and tamsulosin Ordered: Office Visit Level 3 Est 18686 5.Essential hypertension Continue metoprolol and lisinopril Ordered: Office Visit Level 3 Est 13264 6.Acute left hemiparesis Continue Plavix and aspirin Future Scheduled TestsReferral* Return to Clinic 07/16/14 2:08 PM Referrals to Other Providers Referred by: Bruno Mello MD
--- OUTSIDE RECORDS SUMMARY | 2016-05-21 20:56 | XMS REPORT | Referral Summary ---
Author Author [facility] Organization [facility] Address Unknown Phone Unavailable Care Team Providers Care Chiropractic Physician Name Role Phone Daryl Lazcano Primary Care Physician [phone] Encounter VC Date(s): 05/28/15 - 05/28/15 [facility], Family [address] [place] [address] Discharge Disposition: 01-Home or Self Care Attending Physician: Daryl Lazcano DO Admitting Physician: Daryl Lazcano DO Vital Signs Most recent to 1 oldest [Reference Range]: Temperature Tympanic 36.0 degC [36.6-38.1 degC] *LOW* (05/28/15 10:12 AM) Peripheral Pulse 62 bpm Rate [60-100 bpm] (05/28/15 10:12 AM) Blood Pressure 160/85 mmHg [90-140/60-90 mmHg] *HI* (05/28/15 10:12 AM) SpO2 97 % (05/28/15 10:12 AM) Problem List Condition Effective Dates Status [...] DAILY, # 90 tabs, 3 Refill(s), eRx: [facility], TAKE ONE TABLET BY [...] DAILY, # 30 tabs, 2 Refill(s), eRx: [facility]28, TAKE ONE TABLET BY MOUTH ONCE DAILY Start Date: 04/10/15 Status: Ordered lisinopril 40 mg oral tablet 40 mg 1 tabs, Oral, Daily, # 30 tabs, 6 Refill(s), Pharmacy: [facility]28 Start Date: 08/30/14 Status: Ordered Metoprolol Tartrate 25 mg oral tablet See Instructions, TAKE ONE TABLET BY MOUTH TWICE DAILY, # 60 tabs, eRx: [facility]28, TAKE ONE TABLET BY MOUTH [...] Daily, # 1 Each, 6 Refill(s), Pharmacy: [facility]28 Start Date: 09/26/14 Status: Ordered Results Chemistry Most recent to 1 oldest [Reference Range]: Vitamin B12 Lvl 428 pg/mL [213-816 pg/mL] (05/28/15 11:29 AM) Folate Lvl [7.0-31.4 8.6 ng/mL ng/mL] (05/28/15 11:29 AM) Immunizations Vaccine Date Refusal Reason influenza virus [...] Visit Note Author: Daryl Lazcano DO Date: 05/28/15 Assessment/Plan Essential tremor 1. Continue with primidone for tremors. 2. Will check B-12 level to rule out deficiency. Ordered: Office Visit Level 4 Est 67052 Forgetfulness 1. This Mini-Mental test was inconsistent with dementia findings. 2. Will check B-12 level and replace if deficient. 3. If this continues to be a concern then we will send him to psychiatrist for for reevaluation of dementia versus depression. Ordered: Office Visit Level 4 Est 83388 Vitamin B12 and Folate HTN (hypertension) 1. His blood pressure was rechecked after he had rested in the office, repeat blood pressure reading was 142/80. This is acceptable. 2. No change in blood pressure medications at this time. 3. Recommended low-salt diet and continued effort with weight loss. Ordered: Office Visit Level 4 Est 27296 Future Scheduled TestsReferral* Return to Clinic 07/16/14 2:08 PM Referrals to Other Providers Referred by: Bruno Mello MD
--- OUTSIDE RECORDS SUMMARY | 2016-05-21 20:57 | XMS REPORT | Referral Summary ---
Author Organization Unknown Address Unknown Phone Unavailable Care Team Providers Care Building Construction Supervisor Name Role Phone Daryl Lazcano Primary Care Physician [phone] Encounter VC Date(s): 03/14/14 - 03/14/14 [facility], Family Medicine [address] [place] [address] [place] [id number] Discharge Disposition: Home or Self Care Attending Physician: Daryl Lzacano DO Admitting Physician: Daryl Lazcano DO Vital Signs Most recent to 1 oldest [Reference Range]: Temperature Tympanic 36.4 degC [36.6-38.1 degC] *LOW* (03/14/14 10:22 AM) Peripheral Pulse 96 bpm Rate [60-100 bpm] (03/14/14 10:22 AM) Blood Pressure 164/91 mmHg [90-140/60-90 mmHg] *HI* (03/14/14 10:22 AM) Problem List Condition Effective Dates Status [...] Daily, # 90 tabs, 4 Refill(s), Pharmacy: [facility] [address], 1 tabs Oral Daily Start Date: 11/02/13 Status: Ordered Fiber Choice See Instructions, 2 caps BID, 0 Refill(s) Special Instructions: 2 caps BID Start Date: 10/31/13 Status: Ordered lisinopril 20 mg oral tablet 1 tabs, Oral, Daily, # 30 tabs, 0 Refill(s), Pharmacy: [facility] [address] Start Date: 03/14/14 Status: Ordered metoprolol tartrate 25 mg oral tablet 1 tabs, Oral, BID, # 60 tabs, 1 Refill(s), Pharmacy: [facility] Start Date: 02/15/14 Status: Ordered metoprolol tartrate 25 mg oral tablet 1 tabs, Oral, BID, # 60 tabs, 0 Refill(s), Pharmacy: [facility], 1 tabs Oral BID Start Date: 11/17/13 Status: Ordered Plavix 75 mg oral tablet 1 tabs, Oral, Daily, # 30 tabs, 0 Refill(s) Start Date: 08/08/13 Status: Ordered primidone 50 mg oral tablet 2 tabs, Oral, BID, # 120 tabs, 0 Refill(s) Start Date: 08/08/13 Status: Ordered Surfak Stool Softener 240 mg oral capsule 1 caps, Oral, Daily, 0 Refill(s) Start Date: 10/31/13 Status: Ordered Symbicort 160 mcg-4.5 mcg/inh inhalation aerosol 2 puffs, Inhalation, BID, 0 Refill(s) Start Date: 10/31/13 Status: [...] Visit Note Author: Daryl Lazcano DO Date: 03/14/14 Assessment/Plan Ordered: lisinopril, 1 tabs, Oral, Daily, # 30 tabs, 0 Refill(s), [facility] Office Visit Level 3 Est 94283 Hypertension: 1. Blood pressure is poorly controlled at this time. We discussed this in detail with the patient. 2. Continue with current regimen. 3. Recommended avoidance of salt as much as possible. 4. Increase daily exercise activity as tolerated in an effort to lose weight. 5. We'll start him on lisinopril 20 mg daily and have him follow-up in a month time. Future Scheduled TestsReferral* Return to Clinic 12/07/13 12:36 PM Referrals to Other Providers Referred by: Bruno Mello MD
--- OUTSIDE RECORDS SUMMARY | 2016-05-21 20:57 | XMS REPORT | Referral Summary ---
Author Author [facility] Organization [facility] Address Unknown Phone Unavailable Care Team Providers Care Advertising Display Rotator Name Role Phone Reedloyda Daryl Primary Care Physician [phone] Encounter VC Date(s): 07/16/14 - 07/16/14 [facility] [address] [place], [place] [address] Discharge Diagnosis: Obesity Discharge Diagnosis: Obstructive chronic bronchitis Discharge Diagnosis: Generalized arteriosclerosis Discharge Diagnosis: Hypertension Discharge Diagnosis: Peripheral edema Discharge Disposition: 01-Home or Self Care Attending Physician: Bruno Mello MD Admitting Physician: Bruno Mello MD Vital Signs Most recent to 1 oldest [Reference Range]: Temperature Oral 36.9 degC [35.8-37.3 degC] (07/16/14 1:37 PM) Peripheral Pulse 60 bpm Rate [60-100 bpm] (07/16/14 1:37 PM) Respiratory Rate 16 br/min [14-20 br/min] (07/16/14 1:37 PM) Blood Pressure 162/98 mmHg [90-140/60-90 mmHg] *HI* (07/16/14 1:37 PM) SpO2 95 % (07/16/14 1:37 PM) Problem List Condition Effective Dates Status [...] DAILY, # 90 tabs, 3 Refill(s), eRx: [facility], TAKE ONE TABLET BY MOUTH ONCE DAILY Start Date: 01/25/15 Status: Ordered Fiber Choice See Instructions, 2 caps BID, 0 Refill(s) Start Date: 10/31/13 Status: Ordered lisinopril 40 mg oral tablet 40 mg 1 tabs, Oral, Daily, # 30 tabs, 6 Refill(s), Pharmacy: [facility] Start Date: 08/30/14 Status: Ordered Metoprolol Tartrate 25 mg oral tablet See Instructions, TAKE ONE TABLET BY MOUTH TWICE DAILY, # 60 tabs, 3 Refill(s), eRx: [facility], TAKE ONE TABLET BY MOUTH TWICE DAILY [...] Daily, # 1 Each, 6 Refill(s), Pharmacy: [facility] Start Date: 09/26/14 Status: Ordered Results No [...] Extracted from: Title: Office Visit Note Author: Bruno Mello MD Date: 07/16/14 Assessment/Plan 1.Obstructive chronic bronchitis use Symbicort twice a day on the hot and humid days, otherwise he is in the morning only. Return in 6 months with spirometry. Call sooner if needed. Yearly flu vaccine and Pneumovax 23 and 13 once each after 65 2.Hypertension consider blood pressure medication adjustments 3.Generalized arteriosclerosis right foot pain prior embolization 4.Obesity get back on the diet that allowed him to lose 3 pounds at last visit. Clearly his breathing and his foot will feel better when he is not as heavy. 5.Peripheral edema Orders: pulmonary stress testing simple 77052 Future Scheduled TestsReferral* Return to Clinic 07/16/14 2:08 PM Referrals to Other Providers Referred by: Bruno Mello MD
--- OUTSIDE RECORDS SUMMARY | 2016-05-21 20:57 | XMS REPORT | Referral Summary ---
Author Author [facility] Organization [facility] Address Unknown Phone Unavailable Care Team Providers Care Asbestos Coverer Name Role Phone Daryl Lazcano Primary Care Physician [phone] Encounter VC Date(s): 11/27/14 - 11/27/14 [facility] [address] [place] [address] Discharge Diagnosis: Benign essential hypertension Discharge Disposition: 01-Home or Self Care Attending Physician: Daryl Lazcano DO Admitting Physician: Daryl Lazcano DO Vital Signs Most recent to 1 oldest [Reference Range]: Temperature Tympanic 35.7 degC [36.6-38.1 degC] *LOW* (11/27/14 10:39 AM) Peripheral Pulse 66 bpm Rate [60-100 bpm] (11/27/14 10:39 AM) Blood Pressure 118/70 mmHg [90-140/60-90 mmHg] (11/27/14 10:39 AM) Problem List Condition Effective Dates Status [...] Daily, # 90 tabs, 4 Refill(s), [facility], 1 tabs Oral Daily Start Date: 11/02/13 Status: Ordered Fiber Choice See Instructions, 2 caps BID, 0 Refill(s) Start Date: 10/31/13 Status: Ordered lisinopril 40 mg oral tablet 40 mg 1 tabs, Oral, Daily, # 30 tabs, 6 Refill(s), [facility] Start Date: 08/30/14 Status: Ordered Metoprolol Tartrate 25 mg oral tablet See Instructions, TAKE ONE TABLET BY MOUTH TWICE DAILY, # 60 tabs, 3 Refill(s), eRx: [facility], TAKE ONE TABLET BY MOUTH [...] Daily, # 1 Each, 6 Refill(s), Pharmacy: [facility] Start Date: 09/26/14 Status: Ordered Results No [...] Visit Note Author: Daryl Lazcano DO Date: 11/27/14 Assessment/Plan Benign essential hypertension 1. Blood pressures well controlled, continue with current medications. 2. Continue with diet modification and weight loss. 3. Low salt diet recommended. 4. His blood pressure machine was calibrated with our reading today and it' s comparable. 5. Follow-up in 6 months for blood pressure management. Ordered: Office Visit Level 3 Est 46397 Future Scheduled TestsReferral* Return to Clinic 12/07/13 12:36 PM * Return to Clinic 07/16/14 2:08 PM Referrals to Other Providers Referred by: Bruno Mello MD Referred by: Bruno Mello MD
--- OUTSIDE RECORDS SUMMARY | 2016-05-21 20:58 | XMS REPORT | Referral Summary ---
Author Author [facility] Organization [facility] Address Unknown Phone Unavailable Care Team Providers Care Solid State Tester Name Role Phone Daryl Lazcano Primary Care Physician [phone] Encounter VC Date(s): 11/25/15 - 11/25/15 [facility] [address] [place] [address] Discharge Diagnosis: PVD (peripheral vascular disease) Discharge Diagnosis: Right foot pain Discharge Diagnosis: Benign essential hypertension Discharge Diagnosis: Stage III chronic kidney disease Discharge Disposition: 01-Home or Self Care Attending Physician: Daryl Lazcano DO Admitting Physician: Daryl Lazcano DO Vital Signs Most recent to 1 oldest [Reference Range]: Temperature Tympanic 36.0 degC [36.6-38.1 degC] *LOW* (11/25/15 1:06 PM) Peripheral Pulse 56 bpm Rate [60-100 bpm] *LOW* (11/25/15 1:06 PM) Respiratory Rate 18 br/min [14-20 br/min] (11/25/15 1:06 PM) Blood Pressure 118/60 mmHg [90-140/60-90 mmHg] (11/25/15 1:06 PM) SpO2 97 % (11/25/15 1:06 PM) Problem List Condition Effective Dates Status [...] Daily, # 30 tabs, 6 Refill(s), Pharmacy: [facility], 1 tabs Oral Daily Start Date: 07/16/15 Status: Ordered atorvastatin 80 mg oral tablet 80 mg 1 tabs, Oral, Daily, # 30 tabs, 3 Refill(s), Pharmacy: [facility], 1 tabs Oral Daily Start Date: 07/18/15 Status: Ordered Bisac-Evac 10 mg rectal suppository 10 mg 1 supp, Rectal, Daily, as needed for constipation, # 10 supp, 1 Refill(s) , Pharmacy: [facility], 1 supp Rectal Daily,PRN:as needed for constipation Start Date: 07/16/15 Status: Ordered diphenhydrAMINE 50 mg, Oral, Bedtime (once a day), as needed for sleep, 0 Refill(s) Start Date: 07/02/15 Status: Ordered Dulcolax Stool Softener 200 mg, Oral, Daily, 0 Refill(s) Start Date: 05/30/15 Status: Ordered escitalopram 10 mg oral tablet 10 mg 1 tabs, Oral, Daily, # 30 tabs, 6 Refill(s), Pharmacy: [place] [facility] [address], 1 tabs Oral Daily Start Date: 07/16/15 Status: Ordered finasteride 5 mg oral tablet 5 mg 1 tabs, Oral, Daily, # 30 tabs, 6 Refill(s), Pharmacy: [facility] [address], 1 tabs Oral Daily Start Date: 07/16/15 Status: Ordered lisinopril 20 mg oral tablet 20 mg 1 tabs, Oral, Daily, # 30 tabs, 6 Refill(s), Pharmacy: [facility] [address] Start Date: 07/16/15 Status: Ordered metoprolol tartrate 25 mg oral tablet 25 mg 1 tabs, Oral, BID, # 60 tabs, 6 Refill(s), Pharmacy: [facility] [address] Start Date: 07/16/15 Status: Ordered MiraLax oral powder for reconstitution 17 g, Oral, Daily, as needed for constipation, # 255 g, 1 Refill(s), Pharmacy: [facility] 242 Start Date: 07/16/15 Status: Ordered Nitrostat 0.4 mg sublingual tablet 0.4 mg 1 tabs, SubLingual, q5min, Angina/Chest Pain, # 25 Each, 6 Refill(s), other reason (Rx) Start Date: 06/11/15 Status: Ordered nystatin 100,000 units/g topical powder 1 elle, Topical, TID, as needed for rash, # 15 g, 0 Refill(s), Pharmacy: [facility]28 Start Date: 07/18/15 Stop Date: 01/17/16 Status: Ordered OTC Psyllium Fiber OTC Psyllium Fiber, 2 caps oral daily, 0 Refill(s) Start Date: 05/30/15 Status: Ordered Plavix 75 mg oral tablet 75 mg 1 tabs, Oral, Daily, # 30 tabs, 6 Refill(s), Pharmacy: [facility], 1 tabs Oral Daily Start Date: 07/16/15 Status: Ordered primidone 50 mg oral tablet 50 mg 1 tabs, Oral, TID, Dr. Nunez changed the doseage to TID from BID, # 60 tabs, 6 Refill(s), Pharmacy: [facility], 1 tabs Oral BID Start Date: 07/16/15 Status: Ordered Symbicort 160 mcg-4.5 mcg/inh inhalation aerosol 2 puffs, Inhalation, Daily, # 1 Each, 6 Refill(s), Pharmacy: [facility] Start Date: 07/16/15 Status: Ordered tamsulosin 0.4 mg oral capsule 0.4 mg 1 caps, Oral, Daily, # 30 caps, 6 Refill(s), Pharmacy: [facility]28, 1 caps Oral Daily Start Date: 07/16/15 Status: Ordered Results No data available for this section Immunizations Vaccine Date Refusal Reason influenza virus vaccine, inactivated 11/25/15 influenza virus vaccine, live 12/08/12 influenza virus [...] Office Visit Note Author: ReedDaryl scales Date: 11/25/15 Assessment/Plan 1.Right foot pain 1. Evaluation of the right foot appears to be metatarsal pain. 2. Plain imaging ordered, report is pending. 3. Good foot support recommended. Ordered: Office Visit Level 4 Est 17862 XR Foot Complete Right 2.Benign essential hypertension 1. Blood pressure is controlled at this time. 2. Continue with low salt diet. 3. Continue with current medications. Ordered: Office Visit Level 4 Est 02713 3.Stage III chronic kidney disease 1. His renal function appears to be worse compared to previous study. 2. Avoid NSAIDs. 3. Repeat BMP in one month, if he has worsening renal function then we plan on referring him to inside sales advisor. 4. If he has worsening renal function we may need to decrease the lisinopril. Ordered: Office Visit Level 4 Est 19002 Need for influenza vaccination 1. Given today. PVD (peripheral vascular disease) 1. Recommended following up with Dr. Barbosa for farther evaluation of peripheral vascular disease.
--- OUTSIDE RECORDS SUMMARY | 2016-05-21 20:58 | XMS REPORT | Referral Summary ---
Author Author [facility] Organization [facility] Address Unknown Phone Unavailable Care Team Providers Care Physician Surgeon Name Role Phone Daryl Lazcano Primary Care Physician [phone] Encounter Date(s): 04/30/15 - 04/30/15 [facility] [address] [place], [place] [address] Discharge Diagnosis: Chronic obstructive airway disease Discharge Disposition: 01-Home or Self Care Attending Physician: Ed Stockton MD Admitting Physician: Ed Stockton MD Vital Signs No data available for this section Problem List Condition Effective Dates Status Health [...] # 90 tabs, 3 Refill(s), eRx: [facility], TAKE ONE TABLET BY MOUTH [...] DAILY, # 30 tabs, 2 Refill(s), eRx: [facility] 2428, TAKE ONE TABLET BY MOUTH ONCE DAILY Start Date: 04/10/15 Status: Ordered lisinopril 40 mg oral tablet 40 mg 1 tabs, Oral, Daily, # 30 tabs, 6 Refill(s), Pharmacy: [facility] 242 Start Date: 08/30/14 Status: Ordered Metoprolol Tartrate 25 mg oral tablet See Instructions, TAKE ONE TABLET BY MOUTH TWICE DAILY, # 60 tabs, 3 Refill(s), eRx: [facility] 2428, TAKE ONE TABLET BY MOUTH TWICE DAILY Start Date: 10/16/14 Status: Ordered Metoprolol Tartrate 25 mg oral tablet See Instructions, TAKE ONE TABLET BY MOUTH TWICE DAILY, # 60 tabs, eRx: [facility] 2428, TAKE ONE TABLET BY MOUTH TWICE DAILY Start Date: 04/12/15 Status: Ordered Metoprolol Tartrate 25 mg oral tablet See Instructions, TAKE ONE TABLET BY MOUTH TWICE DAILY, # 60 tabs, 1 Refill(s), eRx: [facility]28, TAKE ONE TABLET BY MOUTH [...] # 1 Each, 6 Refill(s), Pharmacy: [facility]28 Start Date: 09/26/14 Status: Ordered Results No [...] Former smoker; Type: Cigarettes Assessment and Plan Future Scheduled TestsReferral* Return to Clinic 07/16/14 2:08 PM Referrals to Other Providers Referred by: Bruno Mello MD
--- OUTSIDE RECORDS SUMMARY | 2016-05-21 20:58 | XMS REPORT | Referral Summary ---
Author Author [facility] Organization [facility] Address Unknown Phone Unavailable Care Team Providers Care Bar Gauger And Lubricator Tender Name Role Phone Daryl Lazcano Primary Care Physician [phone] Encounter VC Date(s): 07/16/14 - 07/16/14 [facility] [address] [place], [place] [address] Discharge Diagnosis: Asthma Discharge Disposition: 01-Home or Self Care Attending Physician: Bruno Mello MD Admitting Physician: Bruno Mello MD Vital Signs No data available for [...] DAILY, # 90 tabs, 3 Refill(s), eRx: [facility]28, TAKE ONE TABLET BY MOUTH ONCE DAILY Start Date: 01/25/15 Status: Ordered Fiber Choice See Instructions, 2 caps BID, 0 Refill(s) Start Date: 10/31/13 Status: Ordered lisinopril 40 mg oral tablet 40 mg 1 tabs, Oral, Daily, # 30 tabs, 6 Refill(s), Pharmacy: [facility] 242 Start Date: 08/30/14 Status: Ordered Metoprolol Tartrate 25 mg oral tablet See Instructions, TAKE ONE TABLET BY MOUTH TWICE DAILY, # 60 tabs, 3 Refill(s), eRx: [facility]28, TAKE ONE TABLET [...] Daily, # 1 Each, 6 Refill(s), Pharmacy: [facility]28 Start Date: 09/26/14 Status: Ordered [...]
--- OUTSIDE RECORDS SUMMARY | 2016-05-21 20:58 | XMS REPORT | Referral Summary ---
Author Author [facility] Organization [facility] Address Unknown Phone Unavailable Care Team Providers Care Road Freight Brake Coupler Name Role Phone Daryl Lazcano Primary Care Physician [phone] Encounter VC Date(s): 08/30/14 - 08/30/14 [facility] [address] [place] [address] Discharge Diagnosis: HTN (hypertension) Discharge Disposition: 01-Home or Self Care Attending Physician: Daryl Lazcano DO Admitting Physician: Daryl Lazcano DO Vital Signs Most recent to 1 oldest [Reference Range]: Temperature Tympanic 35.7 degC [36.6-38.1 degC] *LOW* (08/30/14 9:55 AM) Peripheral Pulse 66 bpm Rate [60-100 bpm] (08/30/14 9:55 AM) Blood Pressure 162/89 mmHg [90-140/60-90 mmHg] *HI* (08/30/14 9:55 AM) Problem List Condition Effective Dates Status [...] 90 tabs, 3 Refill(s), eRx: [facility], TAKE ONE TABLET BY MOUTH ONCE DAILY Start Date: 01/25/15 Status: Ordered Fiber Choice See Instructions, 2 caps BID, 0 Refill(s) Start Date: 10/31/13 Status: Ordered lisinopril 40 mg oral tablet 40 mg 1 tabs, Oral, Daily, # 30 tabs, 6 Refill(s), Pharmacy: [facility] 2428 Start Date: 08/30/14 Status: Ordered Metoprolol Tartrate 25 mg oral tablet See Instructions, TAKE ONE TABLET BY MOUTH TWICE DAILY, # 60 tabs, 3 Refill(s), eRx: [facility]28, TAKE ONE TABLET BY MOUTH TWICE DAILY Start Date: 10/16/14 Status: Ordered Metoprolol Tartrate 25 mg oral tablet See Instructions, TAKE ONE TABLET BY MOUTH TWICE DAILY, # 60 tabs, 1 Refill(s), eRx: [facility]28, TAKE ONE TABLET BY [...] Daily, # 1 Each, 6 Refill(s), Pharmacy: [facility] Start Date: 09/26/14 Status: Ordered Results No [...] Visit Note Author: Daryl Lazcano DO Date: 08/30/14 Assessment/Plan HTN (hypertension) 1. His blood pressure reading today is 160/80. 2. Continue with diet and lifestyle modification. 3. Increase lisinopril to 40 mg daily. 4. Follow-up in 3 months for reevaluation, earlier if any new concerns. Ordered: lisinopril, 40 mg 1 tabs, Oral, Daily, # 30 tabs, 6 Refill(s), Pharmacy: [facility] 2428 Office Visit Level 3 Est 63847 Future Scheduled TestsReferral* Return to Clinic 07/16/14 2:08 PM Referrals to Other Providers Referred by: Bruno Mello MD
--- OUTSIDE RECORDS SUMMARY | 2016-05-21 20:58 | XMS REPORT | Continuity of Care Document ---
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 Edema - *Chronic Constipation, unspecified - Acute Exacerbation ADV EFF MED/BIOL SUB NOS - *Acute Hypokalemia - *Controlled COPD (chronic obstructive pulmonary disease) - *Stable Sleep apnea - *Controlled Pulmonary infiltrates - *Resolved Peripheral vascular disease - Healing Former smoker - Inactive Diastolic dysfunction - Mild Hypertension, unspecified - *Poor control Benign prostatic hyperplasia - *Stable Peripheral vascular disease - Improved Hypertension, Unspecified - *Fair Control Edema - *Worse BENIGN LOCALIZED HYPERPLASIA OF PROSTATE WITH URINARY OBSTRUCTION - *Fair Control Edema - *Stable Hypertension, Unspecified - *Fair Control 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 Edema - *Chronic Constipation, unspecified - *Chronic Peripheral vascular disease, unspecified - *Chronic Edema - Chronic Constipation, unspecified - Chronic Peripheral vascular disease, unspecified - Chronic Withdrawal symptoms, drug or narcotic - *Acute [...] - *Controlled Elevated blood pressure (not hypertension) - *Acute Anxiety as acute reaction to [...] Hypertension, Unspecified - *Controlled Edema - *Resolved Sleep Apnea, Obstructive - Uncertain Peripheral vascular disease, unspecified - *Chronic Constipation, [...] Unspecified - *Fair Control Influenza Vaccine - HYPERTROPHY (BENIGN) OF PROSTATE WITH URINARY OBSTRUCTION [...] Dosage Effective Dates (start - stop) Status Symbicort 160 mcg-4.5 mcg/actuation HFA aerosol inhaler inhale 2 puff by inhalation route 2 times every day in the morning and evening 0 - Active Plavix 75 mg tablet take [...] day as needed 240 MG - Active doxazosin 2 mg tablet take 1 tablet (2MG) by oral route every day 2 MG Nov - Active triamcinolone acetonide 0.5 % topical ointment apply by topical route 3 times every day a thin layer to the affected area(s) 0 - Active Immunizations Vaccine Date Status Comments Influenza virus (intradermal) completed Flu (split) (3 yrs or older) completed Tdap (Boostrix r) completed Pneumo (2 yrs or older)(PPV) completed pneumo (2 yrs or older) (PPV23) completed - Completed reason: source unspecified Td (adult) completed - Completed reason: source unspecified Results Test Name Date and Time Measure Units Reference Range Abnormal Flag Comments Unknown Vital Signs Date / Time: Height Weight Pulse Rate Blood Pressure Temperature /13:57:00 67.00 in 219.00 lbs 54 /min 140/82 mm[Hg] 97.9 F Procedures Procedure Date Unknown Encounters Encounter Location Date Patient Visit [facility] Patient Visit [facility] Patient Visit [facility] Patient Visit [facility] Patient Visit [facility] Patient Visit [facility] Patient Visit [facility] Patient Visit [facility] U[facility] Patient Visit [facility] Patient [facility] Patient [facility] Patient [facility] Patient [facility] Patient Visit Con[facility] Patient Visit [facility] Patient Visit [facility] Advance Directives Directive Effective Date Unknown
--- OUTSIDE RECORDS SUMMARY | 2016-05-21 20:58 | XMS REPORT | Continuity of Care Document ---
Author Author [facility] Organization [facility] Address Unknown Phone Unavailable Allergies Active Description Code Type Severity Reaction Onset Reported/Identified Relationship to Patient Clinical Status Yes MISC-Other MISC_MA Moderate makes hands puff up 11/30/2011 Yes No Known Medication Allergies NKMA N/A N/A 08/08/2013 Yes No Known Medication Allergies NKMA N/A N/A 08/08/2013 Medications Medication Packaging Start Date Stop Date Route Dosage Sig amoxicillin(amoxicillin 500 mg oral tablet) 1 tabs 08/08/2013 08/15/2013 Oral 500 mg 1 tabs, Oral, TID, 21 tabs clopidogrel(Plavix 75 mg oral tablet) 1 tabs 08/08/20132015 Oral 75 mg 75 mg=1 tabs, Oral, Daily, 30 tabs, 0 Refill(s) primidone(primidone 50 mg oral tablet) 1 tabs 08/08/20132015 Oral 50 mg 50 mg=1 tabs, Oral, BID, 120 tabs, 0 Refill(s) doxazosin(doxazosin 2 mg oral tablet) 1 tabs 08/23/20132013 Oral 2 mg 1 tabs, Oral, Daily, 30 tabs docusate(Surfak Stool Softener 240 mg oral capsule) 1 caps 10/31/2013 05/30/2015 Oral 240 mg 240 mg=1 caps, Oral, Daily, PRN: as needed for constipation, 0 Refill(s) budesonide-formoterol(Symbicort 160 mcg-4.5 mcg/inh inhalation aerosol) 2 puffs 10/31/2013 05/23/2014 Inhalation 2 puffs, Inhalation, Daily triamcinolone topical(triamcinolone 0.5% topical cream) 1 elle 10/31/2013 12/07/2013 Topical 1 elle, Topical, TID inulin(Fiber Choice) 10/31/2013 05/30/2015 See Instructions , 2 caps BID doxazosin(doxazosin 2 mg oral tablet) 1 tabs 11/01/20132013 Oral 2 mg 1 tabs, Oral, Daily, 30 tabs doxazosin(doxazosin 2 mg oral tablet) 1 tabs 11/01/20132013 Oral 2 mg 1 tabs, Oral, Daily, 90 tabs doxazosin(doxazosin 2 mg oral tablet) 1 tabs 11/02/20132014 Oral 2 mg 1 tabs, Oral, Daily, 90 tabs metoprolol(metoprolol tartrate 25 mg oral tablet) 1 tabs 11/17/2013 11/17/2013 Oral 25 mg 1 tabs, Oral, BID, 60 tabs metoprolol(metoprolol tartrate 25 mg oral tablet) 1 tabs 11/17/2013 04/17/2014 Oral 25 mg 1 tabs, Oral, BID, 60 tabs ketorolac ophthalmic(ketorolac 0.4% ophthalmic solution) 1 drops 12/12/2013 12/22/2013 Eye-Right 1 drops, Eye-Right, QID, 1 bottles predniSONE(predniSONE 20 mg oral tablet) 2 tabs 01/09/201406/2013 Oral 40 mg 2 tabs, Oral, Daily, 6 tabs lisinopril(lisinopril 20 mg oral tablet) 1 tabs 03/14/201406/2014 Oral 20 mg 1 tabs, Oral, Daily, 30 tabs lisinopril(lisinopril 20 mg oral tablet) 1 tabs 04/12/2014 Oral 20 mg 1 tabs, Oral, Daily, 90 tabs budesonide-formoterol(Symbicort 160 mcg-4.5 mcg/inh inhalation aerosol) 09/26/2014 See Instructions, INHALE TWO PUFFS BY MOUTH TWICE DAILY IN THE MORNING AND EVENING., 11 unknown unit, 1 Refill(s) chlorthalidone(chlorthalidone 25 mg oral tablet) 1 tabs 07/27/2014 08/30/2014 Oral 25 mg 25 mg=1 tabs, Oral, Daily, 30 tabs, 0 Refill(s) lisinopril(lisinopril 40 mg oral tablet) 1 tabs 08/30/201404/2015 Oral 40 mg 40 mg=1 tabs, Oral, Daily, 30 tabs, 6 Refill(s) budesonide-formoterol(Symbicort 160 mcg-4.5 mcg/inh inhalation aerosol) 2 puffs 09/26/2014 07/16/2015 Inhalation 2 puffs, Inhalation, Daily, 1 Each, 6 Refill(s) budesonide-formoterol(Symbicort 160 mcg-4.5 mcg/inh inhalation aerosol) 2 puffs 09/26/2014 Inhalation 2 puffs, Inhalation, Daily, 1 Each, 6 Refill(s) sulfamethoxazole-trimethoprim(Bactrim DS 800 mg-160 mg oral tablet) 1 tabs 10/201411/26/2014 Oral 1 tabs, Oral, BID, for 10 days, 20 tabs, 0 Refill(s) doxazosin(doxazosin 2 mg oral tablet) 01/25/2015 05/30/2015 See Instructions, TAKE ONE TABLET BY MOUTH ONCE DAILY, 90 tabs, 3 Refill(s) lisinopril(lisinopril 40 mg oral tablet) 04/10/20152015 See Instructions, TAKE ONE TABLET BY MOUTH ONCE DAILY, 30 tabs, 2 Refill( s) finasteride(finasteride 5 mg oral tablet) 1 tabs 04/24/201508/2015 Oral 5 mg 5 mg=1 tabs, Oral, Daily, 30 tabs, 0 Refill(s) aspirin(aspirin) 1 tabs 05/30/2015 06/03/2015 Oral 81 mg 81 mg= 1 tabs, Oral, Daily labetalol(labetalol) 1 mL 05/30/2015 06/12/2015 IV Push 5 mg 5 mg =1 mL, IV Push, q6hr, PRN: Hypertension/High Blood Pressure hydrALAZINE(hydrALAZINE) 0.5 mL 05/30/2015 06/04/2015 IV Push 10 mg 10 mg=0.5 mL, IV Push, q4hr, PRN: Hypertension/High Blood Pressure enoxaparin(Lovenox) 1 mL 05/30/2015 05/31/2015 SubCutaneous 100 mg 100 mg=1 mL, SubCutaneous, q12hr morphine(morphine) 0.5 mL 05/30/2015 06/02/2015 IV Push 1 mg 1 mg=0.5 mL, IV Push, q4hr, PRN: Angina/Chest Pain ondansetron(Zofran) 1 tabs 05/30/2015 06/12/2015 Oral 4 mg 4 mg=1 tabs, Oral, q6hr, PRN: Nausea or Vomiting nitroglycerin(nitroglycerin) 1 tabs 05/30/2015 06/07/2015 SubLingual 0.4 mg 0.4 mg=1 tabs, SubLingual, q5min, PRN: Angina/Chest Pain acetaminophen(Tylenol range dose) 2 tabs 05/30/2015 06/03/2015 Oral 1,000 mg 1,000 mg=2 tabs, Oral, q4hr, PRN: Pain Mild (1-3) docusate(Dulcolax Stool Softener) 05/30/2015 Oral 200 mg 200 mg, Oral, Daily, 0 Refill(s) doxazosin(doxazosin) 05/30/2015 07/18/2015 Oral 2 mg 2 mg, Oral , Daily, 0 Refill(s) metoprolol(metoprolol tartrate 25 mg oral tablet) 1 tabs 05/30/2015 06/11/2015 Oral 25 mg 25 mg=1 tabs, Oral, BID, 0 Refill(s) diphenhydrAMINE(diphenhydrAMINE) 05/30/2015 07/18/2015 Oral 50 mg 50 mg, Oral, Bedtime (once a day), TAKE FOR SLEEP, 0 Refill(s) amLODIPine(Norvasc) 1 tabs 05/31/2015 06/04/2015 Oral 5 mg 5 mg=1 tabs, Oral, Once, PRN: Hypertension/High Blood Pressure diphenhydrAMINE(diphenhydrAMINE) 1 caps 05/31/2015 06/12/2015 Oral 50 mg 50 mg=1 caps, Oral, Bedtime (once a day) docusate(Colace) 2 caps 05/31/2015 06/03/2015 Oral 200 mg 200 mg=2 caps, Oral, BID doxazosin(doxazosin) 1 tabs 05/31/2015 06/12/2015 Oral 2 mg 2 mg= 1 tabs, Oral, Daily primidone(primidone) 1 tabs 05/31/2015 06/12/2015 Oral 50 mg 50 mg=1 tabs, Oral, BID metoprolol(metoprolol tartrate 25 mg oral tablet) 1 tabs 05/31/2015 06/12/2015 Oral 25 mg 25 mg=1 tabs, Oral, BID budesonide-formoterol(Symbicort 160 mcg-4.5 mcg/inh inhalation aerosol) 2 puffs 05/31/2015 05/31/2015 Inhalation 2 puffs, Inhalation, Daily lisinopril(lisinopril) 1 tabs 05/31/2015 06/12/2015 Oral 20 mg 20 mg=1 tabs, Oral, Daily finasteride(finasteride) 1 tabs 05/31/2015 06/12/2015 Oral 5 mg 5 mg=1 tabs, Oral, Daily atorvastatin(atorvastatin) 1 tabs 05/31/2015 06/12/2015 Oral 80 mg 80 mg=1 tabs, Oral, Daily fluticasone-salmeterol(Advair HFA 115 mcg-21 mcg/inh inhalation aerosol) 2 puffs 05/31/2015 05/31/2015 Inhalation 2 puffs, Inhalation, BID fluticasone-salmeterol(Advair HFA 115 mcg-21 mcg/inh inhalation aerosol) 2 puffs 05/31/2015 06/04/2015 Inhalation 2 puffs, Inhalation, BID mupirocin topical(Bactroban) 1 elle 06/02/2015 06/03/2015 Nasal 1 elle, Nasal, BID allopurinol(Zyloprim) 1 tabs 06/02/2015 06/03/2015 Oral 300 mg 300 mg=1 tabs, Oral, q6hr (scheduled) acetaminophen(acetaminophen) 1 supp 06/02/2015 06/04/2015 Rectal 650 mg 650 mg=1 supp, Rectal, q4hr, PRN: Pain Mild (1-3) zolpidem(Ambien) 1 tabs 06/02/2015 06/04/2015 Oral 5 mg 5 mg=1 tabs, Oral, Bedtime (once a day), PRN: Insomnia polyethylene glycol 3350(MiraLax) 1 packets 06/02/20152015 Oral 17 g 17 g=1 packets, Oral, Once metoclopramide(Reglan) 2 mL 06/03/2015 06/12/2015 IV Push 10 mg 10 mg=2 mL, IV Push, q6hr, PRN: Nausea HYDROcodone-acetaminophen([place] 5 mg-325 mg oral tablet) 1 tabs 06/03/2015 06/12/2015 Oral 1 tabs, Oral, q4hr, PRN: Pain Moderate (4-6) docusate(Colace) 2 caps 06/03/2015 06/12/2015 Oral 200 mg 200 mg=2 caps, Oral, Daily morphine(morphine) 0.5 mL 06/03/2015 06/12/2015 IV Push 1 mg 1 mg=0.5 mL, IV Push, q2hr, PRN: Pain Severe (7-10) ondansetron(Zofran) 2 mL 06/03/2015 06/12/2015 IV Push 4 mg 4 mg= 2 mL, IV Push, q6hr, PRN: Nausea glucagon(glucagon) 1 mL 06/03/2015 06/12/2015 IntraMuscular 1 mg 1 mg=1 mL, IntraMuscular, As Indicated, PRN: Hypoglycemia/Low Blood Sugar Al hydroxide/Mg hydroxide/simethicone(Maalox Advanced Maximum Strength oral suspension) 15 mL 06/03/2015 06/12/2015 Oral 15 mL, Oral, q4hr, PRN: GERD/Heartburn Sodium Chloride 0.9%(sodium chloride 0.9% 250 mL) 250 mL 06/03/2015 06/06/2015 IV 10 mL/hr, IV polyethylene glycol 3350(MiraLax) 1 packets 06/03/20152015 Oral 17 g 17 g=1 packets, Oral, Daily Dextrose 50% in Water(Dextrose 50% in Water Injection) 25 mL 06/03/2015 06/12/2015 IV Push 12.5 g 12.5 g=25 mL, IV Push, q15min, PRN: Hypoglycemia/Low Blood Sugar Dextrose 10% in Water(Dextrose 10% in Water 250 mL) 250 mL 06/03/2015 06/07/2015 IV 50 mL/hr, IV senna(Senokot) 1 tabs 06/03/2015 06/12/2015 Oral 8.6 mg 8.6 mg=1 tabs, Oral, BID famotidine(Pepcid) 2 mL 06/03/2015 06/05/2015 IV Push 20 mg 20 mg =2 mL, IV Push, q12hr acetaminophen(acetaminophen) 2 tabs 06/03/2015 06/12/2015 Oral 650 mg 650 mg=2 tabs, Oral, q4hr, PRN: Pain Mild (1-3) aspirin(aspirin) 1 tabs 06/03/2015 06/12/2015 Oral 81 mg 81 mg= 1 tabs, Oral, Daily sodium bicarbonate(sodium bicarbonate 8.4% intravenous solution) 50 mL 201506/03/2015 IV Push 50 mEq 50 mEq=50 mL, IV Push, Once ipratropium(ipratropium 500 mcg/2.5 mL inhalation solution ) 2.5 mL 06/04/2015 06/12/2015 EzPap 0.5 mg 0.5 mg=2.5 mL, EzPap, q2hr, PRN: Bronchospasms budesonide(budesonide 0.5 mg/2 mL inhalation suspension) 2 mL 06/04/2015 06/12/2015 EzPap 0.5 mg 0.5 mg=2 mL, EzPap, BID albuterol(albuterol 5 mg/mL (0.5%) inhalation solution) 0.5 mL 06/04/2015 06/12/2015 EzPap 2.5 mg 2.5 mg=0.5 mL, EzPap, q2hr, PRN: Bronchospasms furosemide(Lasix) 2 mL 06/04/2015 06/04/2015 IV Push 20 mg 20 mg =2 mL, IV Push, Once digoxin(digoxin) 5 mL 06/04/2015 06/04/2015 IV Push 250 mcg 250 mcg=5 mL, IV Push, Once albumin human(albumin human 5% intravenous solution) 250 mL 06/04/2015 06/04/2015 IV Piggyback 12.5 g 12.5 g=250 mL, IV Piggyback, Once esmolol(esmolol) 0.5 mL 06/04/2015 06/12/2015 IV Push 5 mg 5 mg= 0.5 mL, IV Push, q6hr, PRN: Tachycardia albumin human(albumin human 5% intravenous solution) 250 mL 06/04/2015 06/04/2015 IV Piggyback 12.5 g 12.5 g=250 mL, 0 mL/hr, IV Piggyback, Once furosemide(Lasix) 3 mL 06/04/2015 06/08/2015 IV Push 30 mg 30 mg =3 mL, IV Push, q12hr potassium chloride(potassium chloride 10 mEq/50 mL intravenous solution) 50 mL 06/05/2015 06/05/2015 IV Piggyback 10 mEq 10 mEq=50 mL, 50 mL/hr, IV Piggyback, q1hr clopidogrel(Plavix) 1 tabs 06/05/2015 06/12/2015 Oral 75 mg 75 mg= 1 tabs, Oral, Daily pantoprazole(Protonix) 1 tabs 06/05/2015 06/12/2015 Oral 40 mg 40 mg=1 tabs, Oral, BID potassium chloride(potassium chloride 20 mEq/15 mL oral liquid) 1 packets 201506/12/2015 Oral 20 mEq 20 mEq=1 packets, Oral, BID nitroglycerin(Nitrostat 0.4 mg sublingual tablet) 1 tabs 06/07/2015 06/12/2015 SubLingual 0.4 mg 0.4 mg=1 tabs, SubLingual, q5min, PRN: Angina/ Chest Pain furosemide(furosemide 20 mg oral tablet) 1 tabs 06/08/201505/2015 Oral 20 mg 20 mg=1 tabs, Oral, Daily ferrous sulfate(ferrous sulfate) 2 tabs 06/08/2015 06/12/2015 Oral 650 mg 650 mg=2 tabs, Oral, Daily bumetanide(Bumex) 8 mL 06/10/2015 06/10/2015 IV Push 2 mg 2 mg= 8 mL, IV Push, Once lisinopril(lisinopril 20 mg oral tablet) 1 tabs 06/11/201508/2015 Oral 20 mg 20 mg=1 tabs, Oral, Daily, 30 tabs, 0 Refill(s) metoprolol(metoprolol tartrate 25 mg oral tablet) 1 tabs 06/11/2015 07/16/2015 Oral 25 mg 25 mg=1 tabs, Oral, BID, 60 tabs, 6 Refill(s) atorvastatin(atorvastatin 80 mg oral tablet) 1 tabs 06/11/2015 07/16/2015 Oral 80 mg 80 mg=1 tabs, Oral, Daily, 30 tabs, 6 Refill(s) HYDROcodone-acetaminophen([place] 5 mg-325 mg oral tablet) 06/11/2015 06/22/2015 See Instructions, 1 to 2 tabs Oral q4hr, PRN: Pain Moderate (4-6), 50 tabs, 0 Refill(s) ferrous sulfate(ferrous sulfate 325 mg (65 mg elemental iron) oral delayed release tablet) 2 tabs 06/11/2015 07/16/2015 Oral 650 mg 650 mg=2 tabs, Oral, Daily, 0 Refill(s) nitroglycerin(Nitrostat 0.4 mg sublingual tablet) 1 tabs 06/11/2015 SubLingual 0.4 mg 0.4 mg=1 tabs, SubLingual, q5min, PRN: Angina/Chest Pain , 25 Each, 6 Refill(s) furosemide(Lasix 20 mg oral tablet) 1 tabs 07/25/2015 Oral 20 mg 20 mg=1 tabs, Oral, Daily, 30 tabs, 0 Refill(s) Problems Date Dx Coded Attending Type Code Diagnosis Diagnosed By 06/13/2015 Kenny Fitzpatrick MD Final E78.0 Pure hypercholesterolemia 06/13/2015 Kenny Fitzpatrick MD Final G47.33 Obstructive sleep apnea (adult) ( pediatric) 06/13/2015 Kenny Fitzpatrick MD Final G93.40 Encephalopathy, unspecified 06/13/2015 Kenny Fitzpatrick MD Final 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, left side 06/13/2015 Kenny Fitzpatrick MD Final I10 Essential (primary) hypertension 06/13/2015 Kenny Fitzpatrick MD Final I21.4 Non-ST elevation (NSTEMI) myocardial infarction 06/13/2015 Kenny Fitzpatrick MD Admitting 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 06/13/2015 Kenny Fitzpatrick MD Final 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 06/13/2015 Kenny Fitzpatrick MD Final I73.9 Peripheral vascular disease, unspecified 06/13/2015 Kenny Fitzpatrick MD Final I97.418 Intraoperative hemorrhage and hematoma of a circulatory system organ or str 06/13/2015 Kenny Fitzpatrick MD Final 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 06/13/2015 Kenny Fitzpatrick MD Final J44.9 Chronic obstructive pulmonary disease, unspecified 06/13/2015 Kenny Fitzpatrick MD Final N17.9 Acute kidney failure, unspecified 06/13/2015 Kenny Fitzpatrick MD Final N40.0 Enlarged prostate without lower urinary tract symptoms 06/13/2015 Kenny Fitzpatrick MD Final R29.810 Facial weakness 06/13/2015 Kenny Fitzpatrick MD Final 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 06/13/2015 Kenny Fitzpatrick MD Final 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 03/21/2016 MICHELLE GIMENEZ S I70.8 ATHEROSCLEROSIS OF OTHER ARTERIES MICHELLE GIMENEZ 03/21/2016 MICHELLE GIMENEZ I71.4 ABDOMINAL AORTIC ANEURYSM, WITHOUT RUPTURE MICHELLE GIMENEZ 03/21/2016 MICHELLE GIMENEZ 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 OR ABSCESS WITHOUT BLEEDING MICHELLE GIMENEZ 03/21/2016 MICHELLE GIMENEZ P Z09 ENCOUNTER FOR FOLLOW-UP EXAMINATION AFTER COMPLETED TREATMENT FOR CONDITIONS OTHER THAN MALIGNANT NEOPLASM MICHELLE GIMENEZ 03/21/2016 MIHCELLE GIMENEZ Z95.828 PRESENCE OF OTHER VASCULAR IMPLANTS AND GRAFTS MICHELLE GIMENEZ Procedures Code Description Performed By Performed On [id number] Performance of Cardiac Output, Continuous 06/03/2015 Results Test Result Range BMP - BASIC METABOLIC PANEL - 03/16/16 10:00 GLUCOSE 89 mg/dl 74-106 BUN 20 mg/dl 7-18 CREATININE 1.46 mg/dl 0.70-1.30 eGFR 47 mL/min SODIUM (NA) 142 mEq/L 136-146 POTASSIUM, BLOOD 5.6 mEq/L 3.5-5.1 CHLORIDE 106 mEq/L 98-107 CO2 (BICARBONATE) 33 mEq/L 21-32 CALCIUM 9.6 mg/dl 8.5-10.1 Encounters ACCT No. Visit Date/Time Discharge Status Pt. Type Provider Facility Loc./Unit Complaint [id number] 04/12/2013 13:51:00 04/12/2013 23 :59:59 [facility] Outpatient [id number] 03/07/2013 10:13:00 03/07/2013 23 :59:59 [facility] [id number] 02/16/2013 10:02:00 02/16/2013 23 :59:59 [facility] Outpatient [id number] 12/01/2012 10:04:00 12/01/2012 23 :59:59 [facility] Outpatient
--- OUTSIDE RECORDS SUMMARY | 2016-05-21 20:58 | XMS REPORT | Referral Summary ---
Author Author [facility] Organization [facility] Address Unknown Phone Unavailable Care Team Providers Care Rehab Department Manager Name Role Phone Daryl Lazcano Primary Care Physician [phone] Encounter VC Date(s): 11/16/14 - 11/16/14 [facility] [address] [place] [id number] Discharge Disposition: 01-Home or Self Care Attending [...] 0 Refill(s) Start Date: 08/08/13 Status: Ordered Bactrim DS 800 mg-160 mg oral tablet 1 tabs, Oral, BID, X 10 days, # 20 tabs, 0 Refill(s), Pharmacy: [id number] Start Date: 11/16/14 Stop Date: 11/26/14 Status: Ordered doxazosin 2 mg oral tablet 1 tabs, Oral, Daily, # 90 tabs, 4 Refill(s), Pharmacy: [facility], 1 tabs Oral Daily Start Date: 11/02/13 Status: Ordered Fiber Choice See Instructions, 2 caps BID, 0 Refill(s) Start Date: 10/31/13 Status: Ordered lisinopril 40 mg oral tablet 40 mg 1 tabs, Oral, Daily, # 30 tabs, 6 Refill(s), Pharmacy: [facility] Start Date: 08/30/14 Status: Ordered Metoprolol Tartrate 25 mg oral tablet See Instructions, TAKE ONE TABLET BY MOUTH TWICE DAILY, # 60 tabs, 3 Refill(s), eRx: [facility], TAKE ONE TABLET BY [...] Daily, # 1 Each, 6 Refill(s), Pharmacy: [id number] Start Date: 09/26/14 Status: Ordered Results No [...] Plan Future Scheduled TestsReferral* Return to Clinic 12/07/13 12:36 PM * Return to Clinic 07/16/14 2:08 PM Referrals to Other Providers Referred by: Bruno Mello MD Referred by: Bruno Mello MD
--- OUTSIDE RECORDS SUMMARY | 2016-05-21 20:58 | XMS REPORT | Referral Summary ---
Author Author [facility] Organization [facility] Address Unknown Phone Unavailable Care Team Providers Care Recycling Specialist Name Role Phone Daryl Lazcano Primary Care Physician [phone] Encounter VC Date(s): 04/24/15 - 04/24/15 [facility] [address] [place] [address] Discharge Diagnosis: Constipation (disorder) Discharge Disposition: 01-Home or Self Care Attending Physician: Daryl Lazcano DO Admitting Physician: Daryl Lazcano DO Vital Signs Most recent to 1 oldest [Reference Range]: Temperature Tympanic 35.5 degC [36.6-38.1 degC] *LOW* (04/24/15 11:31 AM) Peripheral Pulse 62 bpm Rate [60-100 bpm] (04/24/15 11:31 AM) Blood Pressure 149/79 mmHg [90-140/60-90 mmHg] *HI* (04/24/15 11:31 AM) Problem List Condition Effective Dates Status [...] DAILY, # 90 tabs, 3 Refill(s), eRx: [facility], TAKE ONE TABLET [...] DAILY, # 30 tabs, 2 Refill(s), eRx: [facility], TAKE ONE TABLET BY MOUTH ONCE DAILY Start Date: 04/10/15 Status: Ordered lisinopril 40 mg oral tablet 40 mg 1 tabs, Oral, Daily, # 30 tabs, 6 Refill(s), Pharmacy: [facility] Start Date: 08/30/14 Status: Ordered Metoprolol Tartrate 25 mg oral tablet See Instructions, TAKE ONE TABLET BY MOUTH TWICE DAILY, # 60 tabs, 3 Refill(s), eRx: [facility], TAKE ONE TABLET BY MOUTH TWICE DAILY Start Date: 10/16/14 Status: Ordered Metoprolol Tartrate 25 mg oral tablet See Instructions, TAKE ONE TABLET BY MOUTH TWICE DAILY, # 60 tabs, eRx: [facility], TAKE ONE TABLET BY MOUTH TWICE DAILY Start Date: 04/12/15 Status: Ordered Metoprolol Tartrate 25 mg oral tablet See Instructions, TAKE ONE TABLET BY MOUTH TWICE DAILY, # 60 tabs, 1 Refill(s), eRx: [facility], TAKE ONE TABLET [...] Daily, # 1 Each, 6 Refill(s), Pharmacy: [facility] 242 Start Date: 09/26/14 Status: Ordered Results No [...] Diagnosis Body Site Angiogram and stent placement/Dr Babrosa-1 Colonoscopies2 embolectomy-rt lower extremity-Dr Barbosa3 Hospitalization PEREODONTAL GUMS4 STENT TO THE LEFT COMMAN ILIAC ARTERY5 1claudication 2011 3PVD- p angiogram got embolis- 11-30-2011. 4See Conversion Document 5Peripheral vascular disease 11/16/2011. Social History Social History Type Response Smoking Status Former smoker; Type: Cigarettes Assessment and Plan Extracted from: Title: Constipation and abdominal Author: Daryl Lazcano DO Date: 04/24/15 pain Assessment/Plan Constipation (disorder), Slow transit constipation 1. History and clinical findings are consistent with constipation. 2. KUB ordered today, report is pending. 3. Brown Cow drink recommended for constipation and explained to the patient he voiced understanding. Ordered: Office Visit Level 4 Est 93277 Generalized abdominal pain 1. Abdominal pain is likely secondary to constipation. 2. Treatment plan as above. 3. If worsening presentation or no improvement in the next 2-3 days then he' s to come back for reevaluation. 4. Additionally, patient was advised that if he develops severe abdominal pain with cramping, nausea, vomiting, fevers, chills, hematochezia or melena then he will need immediate evaluation in the emergency department. Patient voiced understanding. Ordered: Office Visit Level 4 Est 85538 XR Abdomen AP Future Scheduled TestsReferral* Return to Clinic 07/16/14 2:08 PM Referrals to Other Providers Referred by: Bruno Mello MD
--- OUTSIDE RECORDS SUMMARY | 2016-05-21 20:59 | XMS REPORT | Continuity of Care Document ---
Author Author Amaury Bravo MA, VC Ambulatory Address Unknown Phone Unavailable Care Team Providers Care E/M Engineer Name Role Phone Daryl Lazcano PP Unavailable Payers Payer name Insurance type Covered constitution party ID Authorization(s) Unknown Problems Condition Effective Dates (start - stop) Clinical Status COPD - *Fair Control Hypertension, Unspecified - *Controlled Edema - *Symptomatic Chronic obstructive pulmonary disease (COPD) - *Stable Peripheral vascular disease - *Acute Sleep apnea - *Controlled Ex-cigarette smoker - *Stable Arterial embolism and thrombosis of arteries of [...] Unspecified - *Fair Control Edema - *Worse Hypertension, Unspecified - *Fair Control Influenza Vaccine - BENIGN LOCALIZED HYPERPLASIA OF PROSTATE WITH URINARY [...] Edema - *Chronic Other emphysema - *Chronic Sleep disturbance - *Chronic Right hip pain - *Chronic Abdominal aortic aneurysm - Unstable Abnormal CT scan of lung - Uncertain Chronic obstructive airway disease - *Stable Peripheral vascular disease - Persistent Tobacco use disorder - Remission Constipation, unspecified - *Chronic Other specified aftercare [...] - *Acute Wound, open, toe - *Chronic Toe cyanosis - *Chronic Hypertension, Unspecified - *Controlled Peripheral vascular disease, unspecified - *Chronic Edema - *Chronic Hypertension, Benign - *Chronic Pain in joint involving pelvic region and thigh - *Chronic Sleep Apnea - *Chronic COPD - *Chronic Insomnia, Other - *Chronic Aftercare following surgery of the musculoskeletal - *Acute Gangrene - *Acute Sleep Apnea, Obstructive - Uncertain Peripheral vascular [...] disease, unspecified - *Acute Obesity - *Chronic 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 - Active doxazosin 2 mg tablet take 1 tablet (2MG) by oral route every day 2 MG Nov - Active bumetanide 0.5 mg tablet take 2 Tablet (1MG) by oral route 2 times every day 1 MG - Active Immunizations Vaccine Date Status Comments Influenza virus (intradermal) completed Pneumo (2 yrs or older)(PPV) completed Tdap (Boostrix r) completed Flu (split) (3 yrs or older) completed pneumo (2 yrs or older) (PPV23) completed - Completed reason: source unspecified Td (adult) completed - Completed reason: source unspecified Results Test Name Date and Time Measure Units Reference Range Abnormal Flag Comments Unknown Vital Signs Date / Time: Height Weight Pulse Rate Blood Pressure Temperature /10:10:00 68.00 in 229.00 lbs 80 /min 118/80 mm[Hg] 96.8 F Procedures Procedure Date Unknown Encounters Encounter Location Date Patient Visit [facility] Patient Visit [facility] Patient Visit [facility] Patient Visit [facility] Patient Visit [facility] Patient Visit [facility] Patient Visit [facility] Patient Visit [facility] Patient [facility] Patient [facility] Patient [facility] Patient [facility] Patient [facility] Patient [facility] Patient [facility] Patient Visit [facility] Patient [facility] Patient [facility] Patient [facility] Patient [facility] Patient Visit [facility] Patient Visit [facility] Patient [facility] Patient Visit [facility] Patient Visit [facility] Patient Visit [facility] Patient Visit [facility] Patient [facility] Patient Visit [facility] Patient Visit [facility] Patient Visit [facility] Urology Patient Visit [facility] Patient Visit Con[facility] Patient Visit [facility] Advance Directives Directive Effective Date Unknown
--- OUTSIDE RECORDS SUMMARY | 2016-05-21 20:59 | XMS REPORT | Continuity of Care Document ---
Author Author Daryl Lazcano DO Ambulatory Address [address] [place] [address] [place] [address] Phone Care Team Providers Care Outdoor Landscape Architect Name Role Phone Daryl Lazcano PP Unavailable Payers Payer name Insurance type Covered alliance party ID Authorization(s) Unknown Problems Condition Effective Dates (start - stop) Clinical Status Hypertension, Unspecified - *Controlled Edema - *Resolved Arterial embolism and thrombosis of arteries of [...] - *Stable Hypertension, Unspecified - *Fair Control Diastolic dysfunction - Mild Asthma with COPD [...] Dosage Effective Dates (start - stop) Status Plavix 75 mg tablet take 1 tablet [...] to the affected area(s) 0 - Active Symbicort 160 mcg-4.5 mcg/actuation HFA aerosol inhaler inhale 2 puff by inhalation route 2 times every day in the morning and evening 0 - Active Immunizations Vaccine Date Status [...] Height Weight Pulse Rate Blood Pressure Temperature /10:27:00 68.00 in 222.50 lbs 76 /min 130/72 mm[Hg] 96.9 F Procedures Procedure Date Unknown Encounters Encounter Location Date Patient Visit [facility] Patient Visit [facility] Patient Visit [facility] Patient Visit [facility] Patient Visit [facility] Patient Visit [facility] Patient Visit [facility] Patient Visit [facility] Patient Visit [facility] Patient Visit [facility] Patient [facility] Patient Visit [facility] Patient [facility] Patient [facility] Patient [facility] Patient Visit [facility] Patient Visit [facility] Patient Visit [facility] Patient [facility] Patient [facility] Patient [facility] Patient [facility] Patient [facility] Patient Visit [facility] Patient Visit [facility] Patient Visit [facility] Patient Visit [facility] Patient Visit [facility] Patient Visit [facility] Advance Directives Directive Effective Date Unknown
--- OUTSIDE RECORDS SUMMARY | 2016-05-21 20:59 | XMS REPORT | Referral Summary ---
Author Author [facility] Organization [facility] Address Unknown Phone Unavailable Care Team Providers Care Laborer Pie Bakery Name Role Phone Daryl Lazcano Primary Care Physician [phone] Encounter VC Date(s): 11/27/14 - 11/27/14 [facility] [address] [place] [address] Discharge Diagnosis: Benign essential hypertension Discharge Disposition: [...] 0 Refill(s) Start Date: 08/08/13 Status: Ordered Communication Patient transfer from [facility]-SEE MAR IN CHART, 0 Refill(s) Start Date: 05/30/15 Status: Ordered diphenhydrAMINE 50 mg, Oral, Bedtime (once a day), TAKE FOR SLEEP, 0 Refill(s) Start Date: 05/30/15 Status: Ordered doxazosin 2 mg, Oral, Daily, 0 Refill(s) Start Date: 05/30/15 Status: Ordered Dulcolax Stool Softener 200 mg, Oral, Daily, 0 Refill(s) Start Date: 05/30/15 Status: Ordered finasteride 5 mg oral tablet 5 mg 1 tabs, Oral, Daily, # 30 tabs, 0 Refill(s) Start Date: 04/24/15 Status: Ordered lisinopril 40 mg oral tablet 40 mg 1 tabs, Oral, Daily, # 30 tabs, 6 Refill(s), Pharmacy: [facility] Start Date: 08/30/14 Status: Ordered metoprolol tartrate 25 mg oral tablet 25 mg 1 tabs, Oral, BID, 0 Refill(s) Start Date: 05/30/15 Status: Ordered OTC Psyllium Fiber OTC Psyllium [...] Daily, # 1 Each, 6 Refill(s), [facility]acy: [facility] Start Date: 09/26/14 Status: Ordered Results No [...] Extracted from: Title: Office Visit Note Author: Reedloyda Daryl TRUJILLO Date: 11/27/14 Assessment/Plan Benign essential hypertension 1. Blood pressures well controlled, continue with current medications. 2. Continue with diet modification and weight loss. 3. Low salt diet recommended. 4. His blood pressure machine was calibrated with our reading today and it' s comparable. 5. Follow-up in 6 months for blood pressure management. Ordered: Office Visit Level 3 Est 63574 Future Scheduled TestsReferral* Return to Clinic 07/16/14 2:08 PM Referrals to Other Providers Referred by: Bruno Mello MD
--- OUTSIDE RECORDS SUMMARY | 2016-05-21 20:59 | XMS REPORT | Referral Summary ---
Author Author [facility] Organization [facility] Address Unknown Phone Unavailable Care Team Providers Care Viscose Department Worker Name Role Phone Daryl Lazcano Primary Care Physician [phone] Encounter Date(s): 04/30/15 - 04/30/15 [facility] [address] [place], [place] [address] Discharge Diagnosis: COPD, mild Discharge Disposition: 01-Home or Self Care Attending Physician: Ed Stockton MD Admitting Physician: Ed Stockton MD Vital Signs Most recent to 1 oldest [Reference Range]: Peripheral Pulse 61 bpm Rate [60-100 bpm] (04/30/15 1:23 PM) Respiratory Rate 22 br/min [14-20 br/min] *HI* (04/30/15 1:23 PM) Blood Pressure 128/80 mmHg [90-140/60-90 mmHg] (04/30/15 1:23 PM) SpO2 96 % (04/30/15 1:23 PM) Problem List Condition Effective Dates Status [...] DAILY, # 90 tabs, 3 Refill(s), eRx: [facility], TAKE ONE TABLET [...] DAILY, # 30 tabs, 2 Refill(s), eRx: [facility], TAKE ONE TABLET BY MOUTH ONCE DAILY Start Date: 04/10/15 Status: Ordered lisinopril 40 mg oral tablet 40 mg 1 tabs, Oral, Daily, # 30 tabs, 6 Refill(s), Pharmacy: [facility] 242 Start Date: 08/30/14 Status: Ordered Metoprolol Tartrate 25 mg oral tablet See Instructions, TAKE ONE TABLET BY MOUTH TWICE DAILY, # 60 tabs, 3 Refill(s), eRx: [facility], TAKE ONE TABLET BY MOUTH TWICE DAILY Start Date: 10/16/14 Status: Ordered Metoprolol Tartrate 25 mg oral tablet See Instructions, TAKE ONE TABLET BY MOUTH TWICE DAILY, # 60 tabs, eRx: [facility], TAKE ONE TABLET BY MOUTH TWICE DAILY Start Date: 04/12/15 Status: Ordered Metoprolol Tartrate 25 mg oral tablet See Instructions, TAKE ONE TABLET BY MOUTH TWICE DAILY, # 60 tabs, 1 Refill(s), eRx: [facility], TAKE ONE TABLET [...] Daily, # 1 Each, 6 Refill(s), Pharmacy: [facility] 242 Start Date: 09/26/14 Status: Ordered [...]
--- OUTSIDE RECORDS SUMMARY | 2016-05-21 20:59 | XMS REPORT | Referral Summary ---
Author Author [facility] Organization [facility] Address Unknown Phone Unavailable Care Team Providers Care Wash Tub Machine Operator Name Role Phone Daryl Lazcano Primary Care Physician [phone] Encounter VC Date(s): 04/23/15 - 04/23/15 [facility] [address] [place], [place] [address] Discharge Diagnosis: BPH NOS w ur obs/LUTS Discharge Disposition: 01-Home or Self Care Attending Physician: Rivera Nesbitt MD Admitting Physician: Rivera Nesbitt MD Vital Signs Most recent to 1 oldest [Reference Range]: Blood Pressure 162/98 mmHg [90-140/60-90 mmHg] *HI* (04/23/15 1:43 PM) Problem List Condition Effective Dates Status [...] DAILY, # 90 tabs, 3 Refill(s), eRx: [facility]28, TAKE ONE TABLET BY MOUTH ONCE DAILY Start Date: 01/25/15 Status: Ordered Fiber Choice See Instructions, 2 caps BID, 0 Refill(s) Start Date: 10/31/13 Status: Ordered lisinopril 40 mg oral tablet See Instructions, TAKE ONE TABLET BY MOUTH ONCE DAILY, # 30 tabs, 2 Refill(s), eRx: [facility] 2428, TAKE ONE TABLET BY MOUTH ONCE DAILY Start Date: 04/10/15 Status: Ordered lisinopril 40 mg oral tablet 40 mg 1 tabs, Oral, Daily, # 30 tabs, 6 Refill(s), Pharmacy: [facility] 242 Start Date: 08/30/14 Status: Ordered Metoprolol Tartrate 25 mg oral tablet See Instructions, TAKE ONE TABLET BY MOUTH TWICE DAILY, # 60 tabs, 3 Refill(s), eRx: [facility] 2428, TAKE ONE TABLET BY MOUTH TWICE DAILY Start Date: 10/16/14 Status: Ordered Metoprolol Tartrate 25 mg oral tablet See Instructions, TAKE ONE TABLET BY MOUTH TWICE DAILY, # 60 tabs, eRx: [facility] 2428, TAKE ONE TABLET BY MOUTH TWICE DAILY Start Date: 04/12/15 Status: Ordered Metoprolol Tartrate 25 mg oral tablet See Instructions, TAKE ONE TABLET BY MOUTH TWICE DAILY, # 60 tabs, 1 Refill(s), eRx: [facility], TAKE ONE TABLET [...] Daily, # 1 Each, 6 Refill(s), Pharmacy: [facility]28 Start Date: 09/26/14 [...] Procedures Procedure Date Related Diagnosis Body Site Measurement of post-voiding residual urine 04/23/15 and/or bladder capacity by ultrasound, non-imaging Angiogram and stent placement/Dr Barbosa-1 Colonoscopies embolectomy-rt lower extremity-Dr Barbosa2 Hospitalization PEREODONTAL GUMS3 STENT TO THE LEFT COMMAN ILIAC ARTERY4 1claudication 2011 2PVD- p angiogram got embolis- 11-30-2011. 3See Conversion Document 4Peripheral vascular disease 11/16/2011. Social History Social History Type Response Smoking Status Former smoker; Type: Cigarettes Assessment and Plan Extracted from: Title: Office Visit Note Author: Rivera Nesbitt MD Date: 04/23/15 Assessment/Plan 1.BPH NOS w ur obs/LUTS Different options gone over with him. He agreed to finasterideand this was prescribed. Next visit here in 12 monthsand sooner if needed. Round 15 minutes were spent todaymostly in discussion. Perhaps next yearhe can be taken off doxazosin. Future Scheduled TestsReferral* Return to Clinic 07/16/14 2:08 PM Referrals to Other Providers Referred by: Bruno Mello MD
--- OUTSIDE RECORDS SUMMARY | 2016-05-21 20:59 | XMS REPORT | Referral Summary ---
Author Author [facility] Organization [facility] Address Unknown Phone Unavailable Care Team Providers Care Mold Hoister Name Role Phone Daryl Lazcano Primary Care Physician [phone] Encounter VC Date(s): 07/11/15 - 07/11/15 [facility] [address] [place] [address] Discharge Disposition: 01-Home or Self Care Attending Physician: Daryl Lazcano DO Admitting Physician: Daryl Lazcano DO Vital Signs Most recent to 1 oldest [Reference Range]: Temperature Tympanic 36.2 degC [36.6-38.1 degC] *LOW* (07/11/15 10:20 AM) Apical Heart Rate 66 bpm [60-100 bpm] (07/11/15 10:20 AM) Blood Pressure 140/80 mmHg [90-140/60-90 mmHg] (07/11/15 10:20 AM) SpO2 94 % (07/11/15 10:20 AM) Problem List Condition Effective Dates Status [...] Daily, # 1 Each, 6 Refill(s), Pharmacy: [facility] Start Date: 09/26/14 Status: Ordered tamsulosin 0.4 [...]
--- NOTE | 2016-05-21 21:10 | NUR ---
IRIS PT HAS DRESSING IN PLACE TO L ELBOW THAT IS SATURATED WITH BLOOD, HE IS APPLYING PRESSURE WITH A HAND TOWEL AT THIS TIME AND THERE IS NO BLEEDING OUTSIDE OF THE DRESSING.
[2016-05-21 21:24] VITALS: Ht 172.7 cm; Wt 102.2 kg
--- NOTE | 2016-05-21 22:10 | NUR ---
PROVIDER OREN CHASE IN ROOM W/ PT.
--- OUTSIDE RECORDS SUMMARY | 2016-05-21 22:19 | XMS REPORT | Continuity of Care Document ---
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 06/13/2015 Kenny [...] without lower urinary tract symptoms 06/13/2015 Kenny Fitzpatrikc MD Final R29.810 Facial weakness 06/13/2015 Kenny Fitzpatrick MD 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 Type Provider Facility Loc./Unit Complaint [id number] 04/12/2013 13:51:00 04/12/2013 23 :59:59 [facility] Outpatient [id number] 03/07/2013 10:13:00 03/07/2013 23 :59:59 [facility] [id number] 02/16/2013 10:02:00 02/16/2013 23 :59:59 [facility] Outpatient [id number] 12/01/2012 10:04:00 12/01/2012 23 :59:59 [facility] Outpatient
--- NOTE | 2016-05-21 22:31 | ERPDOC ---
Departure Disposition Decision Date: May 21, 2016 Disposition Decision Time: 22:27 (KIRA LEE APRN) Disposition: 01 DISCHARGED HOME, SELF-CARE Impression Impression (KIRA LEE APRN) Impression: Primary Impression: Avulsion of skin of elbow Additional Impression: Chronic anticoagulation Condition: Stable Seen By: Mid-level only (KIRA LEE APRN) Referrals: SHRUTHI MACKAY DO (Family) Follow up with as needed or return to the ER if bleeding continues. Patient Instructions: Skin Avulsion (ED) Problems/Meds/Labs Reviewed?: Yes Medications reviewed and manag: Yes (KIRA LEE APRN) Additional Instructions: KEEP THE SPECIAL DRESSING THAT WAS APPLIED DIRECTLY ONTO THE WOUND IN PLACE FOR 24 - 48 HOURS IF POSSIBLE. TO REMOVE THE DRESSING IF ADHERED AFTER 2 -3 DAYS, RUN ARM UNDER WATER OR IN THE SHOWER AND REMOVE GENTLY. DO NOT FORCE THE DRESSING OFF UNLESS THERE IS CONCERN FOR INFECTION. DOING SO MAY CAUSE IT TO BLEED AGAIN. ADDITIONAL SUPPLIES HAVE BEEN SENT HOME WITH YOU TO REPLACE IF NEEDED. KEEP ARM WRAPPED IN [place] OR EMILY WRAP FOR MILD COMPRESSION. PLEASE RETURN TO THE ER IF YOU HAVE ANY PROBLEMS OR BLEEDING WILL NOT STOP. Follow up care ordered?: Yes Mental Status: Alert, Oriented (KIRA LEE APRN) HPI - Skin General General Chief Complaint: Laceration Stated Complaint: ARM LACERATION Time Seen by Provider: 22:05 Source: patient, family Exam Limitations: no limitations (KIRA LEE APRN) Time Seen by Provider: 21:43 (WAGNER BENITEZ DO) HPI - Skin General Initial Comments Patient presents to [facility] ER with complaints of left elbow injury after falling onto his elbow today at 3 pm. Patient is anticoagulated with plavix and presents due to continued oozing from his elbow. Patient denies any aldair pain and maintains full extension and flexion without pain to the elbow itself. Patient denies hitting his head. I recommended that patient have a head CT due to chronic anticoagulation on plavix, and patient is adamant that he did not hit his head. I explained the risks and concerns for a head injury but continues to decline. Patients and patient both state understanding of the risk of a head bleed but both continue to decline. There is not evidence of head trauma and no neuro deficits. No headache. Occurred At: home Onset: Rapid Duration: 6-12 hrs Severity: moderate Location: extremities (left elbow ) 1 - 2 x 3 cm skin superficial skin avulsion. (KIRA LEE E HANDKERCHIEF FOLDER) Allergies: Coded Allergies: No Known Allergies (Unverified , 05/21/16) Past History Patient Surgical History Patient had coronary bypass surgery. (KIRA LEE E HANDKERCHIEF FOLDER) Past Medical History Metabolic: hypertension ENMT: sleep apnea Cardiac: CAD, [place], other Respiratory: COPD, other Male: BPH Neurological: CVA Musculoskeletal: other (KIRA LEE E HANDKERCHIEF FOLDER) Surgical History Cardiac: cardiac bypass, other Joint: other (KIRA LEE E HANDKERCHIEF FOLDER) Family History Family PMH: FOUND: [place] (ROSAKIRA E HANDKERCHIEF FOLDER) Vaccines Hx Influenza Vaccination: Yes () Hx Pneumococcal Vaccination: Yes (? will ask ) (KIRA LEE E HANDKERCHIEF FOLDER) Social History Sexuality: female partner (KIRA LEE HANDKERCHIEF FOLDER) Review of Systems Constitutional Constitutional: see HPI, DENIES: chills, fever (ROSAKIRA E HANDKERCHIEF FOLDER) Eyes General: DENIES: burning, itching (ROSAKIRA E HANDKERCHIEF FOLDER) ENMT Ears: DENIES: pain Hearing: DENIES: tinnitus Balance: DENIES: vertigo (ROSAKIRA E HANDKERCHIEF FOLDER) Cardiovascular Cardiac: DENIES: chest pain, orthopnea Rhythm/Rate: DENIES: tachycardia (ROSAKIRA E HANDKERCHIEF FOLDER) Pulmonary Respiratory: DENIES: cough (ROSAKIRA E HANDKERCHIEF FOLDER) GI Upper Abdomen: DENIES: nausea, pain Lower Abdomen: DENIES: diarrhea, pain (ROSAKIRA E HANDKERCHIEF FOLDER) General: DENIES: dysuria, frequency, urgency (KIRA LEE E HANDKERCHIEF FOLDER) Integumentary Skin: see HPI, DENIES: rash (KIRA LEE E HANDKERCHIEF FOLDER) Neurological General: see HPI, DENIES: headache, seizures, syncope (ROSAKIRA E HANDKERCHIEF FOLDER) All other Systems All Other Systems: Reviewed and Negative (KIRA LEE E HANDKERCHIEF FOLDER) Physical Exam General General Nourishment: well nourished, well developed, appears stated age, no acute distress, adult General Body Habitus: well groomed (KIRA LEE APRN) Vitals and Pain First Documented Vital Signs Date Time Temp Pulse Resp B/P Pulse Ox O2 Delivery O2 Flow Rate FiO2 05/21/16 21:24 98.0 70 16 168/90 95 Room Air ([facility]) Vitals and Pain Weight: Kilograms: Height (feet): 5 Height (inches): 8.00 Triage Pain Scale: (KIRA LEE APRN) Normal Exams: Head: Normocephalic w/o trauma Eyes: Pupils are PERRLA w/ EOMI, No scleral icterus, irritation, or foreign bodies noted Fundi: Disks flat and sharp, No hemorrhages, or AV nicking noted ENMT: No facial trauma, nasal exudates, pharyngeal erythema, or exudates are noted Neck: Full range of motion, without adenopathy, JVD, bruits or thyromegaly Chest/Resp: Clear all lim, with good airflow, and symmetry bilaterally CV: Regular rate and rhythm, without murmur or gallop, Pulses 2+ all extremities, capillary refill, <2 seconds all ext., no pedal edema noted Abdomen: Bowel sounds positive, soft, non-tender, non-distended, no hepatosplenomegaly, masses or bruits noted Lymphatic: No lymphadenopathy, or lymphedema noted Musculoskeletal: No tenderness, or deformity noted, good range of motion, all extremities Integumentary: No rashes, hair and nails, without abnormality Neurologic: Patient is alert, and oriented, cranial nerves, motor/sensory/ cerebellar, exams w/o gross deficits, to observation Psychiatric: Patient exhibits, appropriate attention, emotion and affect (KIRA LEE APRN) Integumentary (brief) Integumentary Brief: FOUND: dry, pink, warm Comments 2x3 area of tissue abrasion; mildly oozing blood (KIRA LEE APRN) Differential Diagnoses Considering: Abrasion, Cellulitis, Laceration (KIRA LEE APRN) Procedures Procedure Detail Procedure Details arm cleansed; bleeding is minimal. Surgicel applied with mild compression dressing. No active bleeding at time of d/c (KIRA LEE APRN) KIRA LEE APRN May 21, 2016 22:31 JUNE,WAGNER Fatima DO May 25, 2016 05:46
[2016-05-21 22:48] VITALS: BP 170/92; PULSE 63; RESP 18; TEMP 98; O2SAT 96
--- NOTE | 2016-05-21 22:48 | NUR ---
DISCHARGE PT GIVEN INSTRUCTIONS FOR CONT CARE OF AVULSION,PT VERBALIZED UNDERSTANDING AND SIGNED FORM. PT LEFT ER AMBULATORY W/O ASSIST, ALERT, VS CHARTED IN NO ACUTE DISTRESS.
== END 2016-05-21 22:48 | disposition home or self-care (01) ==
LOC: ED 20:51
DX: S51.002A Unspecified open wound of left elbow, initial encounter (principal); Z79.01 Long term (current) use of anticoagulants; W19.XXXA Unspecified fall, initial encounter; Y93.9 Activity, unspecified; Y92.009 Unspecified place in unspecified non-institutional (private) residence as the place of occurrence of the external cause; Y99.8 Other external cause status